=== PATIENT | female | born 1975 | race Caucasian/White ===

== ENCOUNTER 2016-07-21 13:31 | Day surgery (SDC) | payer BC ==
[~2016-07-21 13:31] MED LIST: BETAMET ACET/BETAMET NA PH 6 MG/1 ML - 5 ML IAC ONE; Iopamidol Inj 61% 50 ML VIAL INTRATHEC ONE; LIDOCAINE IV ONE; Ropivacaine 0.2% VIAL 2 MG/ML VIAL IAC ONE; SODIUM BICARB IV ONE
[2016-07-21 14:35] VITALS: RESP 20
[2016-07-21 14:43] VITALS: TEMP 98.1
--- NOTE | 2016-07-21 19:18 | GEN.OPNOTE ---
Transforaminal REENA Procedure: Transforaminal Epidural Steriod Injection Procedure Code - Neurosurgery: 97436 : Lumbar Transforaminal Epidural Level: Left L5-S1 Preoperative Diagnosis: L5-S1 disc herniation -: Consent: Rationale for procedure, nature of procedure, possible risks and benefits were discussed with the patient. Risks including allergic reaction to medications, known effects of steroid medications including transient elevation in blood sugar with aggravation of pre-existing diabetes and remote risk of aseptic necrosis of the hip. Pain at the injection site, inadvertent dural puncture with resultant in CSF leak and headache possibly requiring further treatment. Infection or bleeding with potential risk of neurologic injury with weakness, paralysis or were all reviewed with the patient who wished to proceed. Anesthesia, sedation: No intravenous access or sedation was used. Physiologic monitoring of pulse and oxygen saturation was utilized. Procedure: The patient was placed prone on the operating room table, prepped with Chloraprep and sterilely draped. The skin was anesthetized with 1% Buffered Xylocaine. Under fluoroscopic control a 22-gauge Touhy needle was advanced into the area of the Kambin's triangle at the [left L5-S1] level. Imaging confirmation of needle placement in the posterior, inferior and lateral quadrant of the foramen was obtained. Omnipaque was injected under real-time fluoroscopy demonstrating and epidurogram. Following this [5] ml of a mixture of Celestone (6mg/ml) and 1% ropivacaine was injected. AP and lateral images of the final needle placement was obtained. The needle was removed and the patient returned to the post procedure recovery room where they were monitored for any side effects. Pain assessment: Preprocedure pain [6]/10, post procedure pain [7]/10. Discharge instructions: Patient was given a pain log to be filled out and returned. A delayed response to the steroids of 2-5 days was discussed.
== END 2016-07-21 14:27 | disposition home or self-care (01) ==
LOC: SDSC 13:31
PROVIDERS: ATTEND Neurological Surgery
DX: M51.27 Other intervertebral disc displacement, lumbosacral region (principal)
CPT/HCPCS: 64483; 76000; J0702; J2795

== ENCOUNTER → 2016-07-27 | Outpatient (CLI) | payer BC ==
--- NOTE | 2016-07-27 16:08 | DI ---
MRI LUMBAR SPINE SCAN WITHOUT IV CONTRAST, 07/27/2016 1:58 PM: Clinical History: Lumbar radiculopathy. Previous Exam: 05/03/2016. Technique: Sagittal and axial T2 weighted; sagittal T1 weighted and T2 STIR; and axial PD. There are prominent Schmorl's nodes in the superior endplates of the T11-L1 vertebral bodies. The rem aining vertebral bodies are of normal height. There is severe disc space narrowing with desiccation c hange at L5-S1. The remaining lumbar disc spaces are of normal height and signal pattern. The cord te rminates at T12 and the conus medullaris is normal. There are bulging but not herniated discs without canal or neural foraminal stenosis from T10-11 through L1-2. L2-3 through L4-5 has minimally circumf erentially bulging but not herniated discs without canal or neural foraminal stenosis. L5-S1 has mai ges representing a right hemilaminectomy. There is hypointense signal along the left anterolateral as pect of the disc space and this has the same signal pattern as disc material although IV contrast was not administered. This presumed disc material has protruded posteriorly more prominently than on the previous exam and there is loss of epidural fat surrounding the left S1 nerve root medially. Therefo re, this patient may have left S1 nerve root symptoms. There is no canal or neural foraminal stenosis . Readin. Status post right hemilaminectomy. There is material along the left anterolateral aspect of this disc space that has the same signal pattern as disc material but no IV contrast was administered to a llow a definite exclusion of scar tissue formation. This presumed disc material is projected more pos teriorly than on the previous study and there has been loss of the epidural fat surrounding the media l margin of the left S1 nerve root. This patient may have left S1 nerve root symptoms. There is no ca nal or neural foraminal stenosis. 2. There are bulging but not herniated discs without canal or neural foraminal stenosis from T10-11 through L4-5.
== END ==
LOC: MRI 13:52
PROVIDERS: ATTEND Physician Assistant
DX: M54.16 Radiculopathy, lumbar region (principal); M47.815 Spondylosis without myelopathy or radiculopathy, thoracolumbar region
CPT/HCPCS: 72148

== ENCOUNTER → 2016-07-31 | Outpatient (CLI) | payer BC | LOC: LAB 10:40 | PROVIDERS: ATTEND Physician Assistant | DX: E03.9 Hypothyroidism, unspecified (principal) | CPT/HCPCS: 36415; 84443 ==

== ENCOUNTER → 2016-08-06 | Outpatient (CLI) | payer BC ==
--- NOTE | 2016-08-06 11:48 | DI ---
XR KNEE 3 VW,08/06/2016 4:02 PM: Clinical History: Meniscus tear Previous Exam: None at this facility. Findings: 3 views of the right knee are obtained, and demonstrate anatomic alignment without fractures. There i s no evidence of knee joint effusion. The surrounding soft tissues are unremarkable. Impression: Normal right knee.
== END ==
LOC: RAD 09:52
PROVIDERS: ATTEND Neurological Surgery
DX: S83.206A Unspecified tear of unspecified meniscus, current injury, right knee, initial encounter (principal); M25.561 Pain in right knee
CPT/HCPCS: 73562

== ENCOUNTER 2016-08-10 09:17 | Day surgery (SDC) | payer BC ==
[~2016-08-10 09:17] MED LIST changes: -BETAMET ACET/BETAMET NA PH 6 MG/1 ML - 5 ML IAC ONE; -Iopamidol Inj 61% 50 ML VIAL INTRATHEC ONE; -LIDOCAINE IV ONE; +LIDOCAINE W/ SODIUM BICARB 0.5 ML SYR ONE; +Lactated Ringers 1,000 ML PRIMARY IV ONE; -Ropivacaine 0.2% VIAL 2 MG/ML VIAL IAC ONE; -SODIUM BICARB IV ONE; +ceFAZolin Inj 2gm (Premix) 50 ML IV ONE
[2016-08-10 09:54] VITALS: RESP 20
[2016-08-10] MEDS ORDERED: BUPIVACAINE 0.5% W/ EPI - 10 ML VIAL ONE (10:38)
[2016-08-10] MEDS ORDERED: NORMAL SALINE 10 ML SYRINGE FLUSH IVP PRN ×2 (11:13→13:12)
[2016-08-10] MEDS ORDERED: ATROPINE SULFATE 0.4 MG/1 ML VIAL IVP PRN (11:13)
[2016-08-10] MEDS ORDERED: fentaNYL Inj 100 MCG/2 ML VIAL IVP PRN (11:13)
[2016-08-10] MEDS ORDERED: ONDANSETRON 4 MG/2 ML VIAL IVP PRN ×2 (11:13→13:12)
[2016-08-10] MEDS ORDERED: Ondansetron ODT Tab 8 MG TAB PO PRN (11:13)
[2016-08-10] MEDS ORDERED: Lactated Ringers 1,000 ML PRIMARY IV SCH ×2 (11:15→13:15)
[2016-08-10] MEDS ORDERED: MIDAZOLAM 5 MG/1 ML ONE (11:30)
[2016-08-10] MEDS ORDERED: fentaNYL Inj 100 MCG/2 ML VIAL ONE (11:30)
[2016-08-10] MEDS ORDERED: Sodium Chloride 0.9% vial 10 ML ONE (11:31)
[2016-08-10] MEDS ORDERED: KETAMINE 100 MG/1 ML - 5 ML ONE (11:31)
[2016-08-10] MEDS ORDERED: fentaNYL Inj 250 MCG/5 ML VIAL ONE (11:32)
[2016-08-10] MEDS ORDERED: BUPivacaine Inj 0.5% PF (5mg/ml) 10ml vial ONE (11:55)
[2016-08-10] MEDS ORDERED: LIDOCAINE MPF 2% - 5 ML (20 MG/1 ML) ONE (11:57)
[2016-08-10] MEDS ORDERED: oxyCODONE-ACETAMINOPHEN 5-325 TAB PO PRN (13:12)
[2016-08-10] MEDS ORDERED: MORPHINE SULFATE 2 MG/1 ML IVP PRN (13:12)
[2016-08-10] MEDS: HYDROmorphone 2 MG/1 ML IVP PRN ×2 (13:18→13:29)
[2016-08-10] MEDS ORDERED: MIDAZOLAM 5 MG/1 ML IVP ONE (13:19)
[2016-08-10] MEDS ORDERED: HYDROmorphone 2 MG/1 ML ONE (13:20)
[2016-08-10] MEDS ORDERED: Lactated Ringers 1,000 ML PRIMARY IV ONE (13:21)
[2016-08-10] MEDS ORDERED: oxyCODONE-ACETAMINOPHEN 5-325 TAB PO ONE (13:46)
[2016-08-10 14:57] VITALS: TEMP 97.3
== END 2016-08-10 14:35 | disposition home or self-care (01) ==
LOC: SDSC 09:17
PROVIDERS: ATTEND Orthopaedic Surgery
DX: G56.03 Carpal tunnel syndrome, bilateral upper limbs (principal)
CPT/HCPCS: 64721 ×2; A4216; J0690; J2704; J1170; J2001; J2250; J3010; J3490; J7120

== ENCOUNTER 2016-08-10 18:57 | Emergency (ER) | payer BC ==
[2016-08-10] MEDS ORDERED: Ondansetron ODT Tab 8 MG TAB PO ONE ×2 (19:05→19:10)
[2016-08-10] MEDS ORDERED: ONDANSETRON 4 MG/2 ML VIAL IVP ONE (19:23)
[2016-08-10] MEDS ORDERED: Sodium Chloride 0.9% 1,000 ML PRIMARY IV ONE ×2 (19:23→19:47)
[2016-08-10] MEDS ORDERED: ONDANSETRON 4 MG/2 ML VIAL ONE (19:26)
[2016-08-10] MEDS ORDERED: diphenhydrAMINE 50 MG/1 ML VIAL IVP ONE (19:47)
[2016-08-10] MEDS ORDERED: Magnesium Sulfate 2gm (Premix) 2 GM in Premix 1 BAG IV ONE (19:47)
[2016-08-10] MEDS ORDERED: KETOROLAC 30 MG/1 ML VIAL IVP ONE (19:47)
[2016-08-10] MEDS ORDERED: Prochlorperazine Edisylate Inj 10mg/2ml vial IVP ONE (19:47)
[2016-08-10] MEDS ORDERED: DEXAMETHASONE PF 10 MG/1 ML VIAL IVP ONE (19:47)
--- NOTE | 2016-08-10 19:47 | PDOC ---
Gen Adult / Medical Screen HPI - General Chief Complaint: General Medical Stated Complaint: Headache/Nausea/Vomitting Date Seen by Provider: 08/10/16 Time Seen by Provider: 19:47 Source: POSITIVE: Patient Exam Limitations: POSITIVE: No limitations Nurse's Notes Reviewed & Considered: Yes - Indicators Temperature Between 95 and 101 Degrees: Yes - Patient Home Medications Home Medications: Home Medications Losartan/Hydrochlorothiazide [Losartan-Hctz 100-12.5 mg Tab] 1 tab PO DAILY #30 tab 04/29/16 Metoprolol Succinate 1 tab PO BID #60 tab 05/25/16 Magnesium Oxide [Magnesium] 1 tab PO BID tab 06/29/16 Metformin HCl [Metformin HCl ER] 1 tab PO DAILY #70 tab 07/22/16 Cyclobenzaprine HCl 1 tab PO TID #40 tab 07/27/16 Tramadol HCl 1 tab PO Q6-8H #60 tab 07/27/16 Gabapentin 1 cap PO TID #60 cap 07/28/16 Dexlansoprazole [Dexilant] 60 mg PO DAILY #30 cap 08/06/16 Levothyroxine Sodium 1 tab PO DAILY #30 tab 08/06/16 Lidocaine 1 patch TRANSDERM DAILY #30 patch 08/06/16 oxyCODONE/APAP 5/325 Tab [Percocet 5/325 Tab] 1 - 2 tab PO Q4H PRN #30 tab - Patient Allergies Allergies/Adverse Reactions: Allergies Allergy/AdvReac Type Severity Reaction Status Date / Time Sulfa (Sulfonamide Allergy Unknown NOT Verified 08/10/16 19:04 Antibiotics) APPLICABLE codeine [Codeine] Allergy HEADACHE Verified 08/10/16 19:04 Tetanus Vaccines and Toxoid Allergy SWELLING Verified 08/10/16 19:04 [Tetanus] venom-honey bee Allergy SWELLING Verified 08/10/16 19:04 [bee venom (honey bee)] IV Contrast Allergy Intermediate Burning, Uncoded 08/10/16 19:04 Swelling, Hives Past Medical History - heen HEENT History: Denies History Cardiovascular History: Hypertension Additional Cardiovasular History: HX OF SVT Respiratory History: Other (please comment) Additional Respiratory History: chronic tobacco use, quit approx 1 week ago Gastrointestinal History: GERD, Peptic Ulcer Disease Genitourinary History: Kidney Stones Additional Genitourinary History: x9 WITH SONIC WAVES, LAZER AND SHUNTS TO REMOVE Endocrine History: Hypothyroidism Musculoskeletal History: Back Pain, Back Injury, Other (please comment) Prosthesis or Implant: No Additional Musculoskeletal History: lumbar spine surgery Neurological History: Denies History Blood Disorders: Denies History Psychiatric History: Depression, PTSD History of Sexually Transmitted Diseases: No Female Reproductive History: Denies History Obstetrical History: Denies History Cancer History: Denies History In Past Year Been Physically Harmed or Verbally Threatened: No History of MDRO: No History of Other Communicable Diseases: No Tobacco Use: Former Smoker Alcohol Use: Rarely Substance Use Type: None Previous Surgical History: Yes Type / Date of Surgery: LITHOTRIPSY/; HYSTERECTOMY. BACK FX/ SCIATICA SURGERY. SHUNTS FOR KIDNEY STONES Anesthesia Reactions: No Malignant Hyperthermia: No Significant Family History: No pertinent family hx ROS - Limitations ROS Limitations: No Limitations Constitution: REPORTS: Denies Symptoms Cardiovascular: REPORTS: Denies Cardiac Symptoms Respiratory: REPORTS: Denies Resp Symptoms Neurological: REPORTS: Headache Gastrointestinal: REPORTS: Nausea, Vomitting Endocrine: REPORTS: Denies Symptoms Musculoskeletal: REPORTS: Denies MS Symptoms Genitourinary: REPORTS: Denies Symptoms Eyes: REPORTS: Eye Pain ENT: REPORTS: Denies Symptoms Skin: REPORTS: Denies Skin Symptoms Lympathic: REPORTS: Denies Lympathic Symptoms Immunologic: POSITIVE: Denies Symptoms Psychiatric: POSITIVE: Anxiety Gen Adult/Medical Screen Exam - General Appearance General Appearance: POSITIVE: Alert, Cooperative, No Evidence of Trauma, Anxious , Severe Distress - HEENT HEENT: POSITIVE: Head Inspection Nml, Eyes Inspection Nml, Ears Inspection Nml, Nose Inspection Nml, Oral/Dental Inspect. Nml, Pharynx Inspect. Nml, PERRL, EOMI - Pupils Pupil Size: 5 mm: Bilateral - Neck Neck: POSITIVE: Normal Inspection - Respiratory Respiratory: POSITIVE: No Respiratory Distress, Breath Sounds Normal, Chest Non- Tender - Cardiovascular Cardiovascular: POSITIVE: Regular Rate & Rhythm, No Murmur, No Gallop, PMI Normal - Abdomen Abdomen: Soft: (All Quadrants), Normal Bowel Sounds: (All Quadrants), Denies Tenderness: (All Quadrants) - Neurological / Psychological Mental Status: POSITIVE: Tearful Orientation: POSITIVE: Oriented x 3 Reflexes: Patellar (R): 3+, Patellar (L): 3+, Radial (R): 3+, Radial (L): 3+ - Skin Skin: POSITIVE: Normal Color, Warm, Dry, No Rash - Extremities Extremity: Non-Tender: (All Extremities), Normal ROM: (All Extremities), Normal Inspection: (All Extremities) Procedures - Laceration/Wound Repair Did patient have a laceration repair: No Gen Adlt/Medical Scrn Progress - Results Reviewed by me Xrays/CTs/US Reviewed by me: Yes Discussed with Radiologist: Yes Lab Results Reviewed: Yes Lab Results:: Laboratory Results 08/10/16 Range/Units 19:13 WBC 10.83 H (4.8-10.8) 10^3/uL RBC 4.68 (4.20-5.40) 10^6/uL Hgb 14.7 (12.0-16.0) g/dL Hct 41.4 (37.0-47.0) % MCV 88.5 (81-99) FL MCH 31.4 H (27-31) PG MCHC 35.5 (33-37) g/dL RDW Std Deviation 38.0 L (39-50) fL RDW Coeff of Clara 12.0 (11.5-14.5) % Plt Count 185 (140-350) 10*3/uL MPV 10.4 (7.4-12.2) FL Immature Gran % (Auto) 0.3 (0-5) % Neut % (Auto) 76.9 (50-80) % Lymph % (Auto) 17.3 (10-50) % Billings % (Auto) 4.6 L (5-15) % Eos % (Auto) 0.6 (0-8) % Baso % (Auto) 0.3 (0-1) % Immature Gran # (Auto) 0.03 10*3/UL Neut # (Auto) 8.33 10*3/UL Lymph # (Auto) 1.87 10*3/uL Bill[place] # (Auto) 0.50 (0.3-0.8) 10*3/UL Eos # (Auto) 0.07 10*3/UL Baso # (Auto) 0.03 10*3/UL WBC Morphology Comment Normal morphology (NORM) Plt Morphology Comment Normal morphology (NORM) RBC Morph Comment Normal morphology (NORM) PT 10.6 (9.7-11.4) secs INR 1.03 (0.00-5.90) N/A Sodium 140 (135-145) meq/L Potassium 3.7 L (3.8-5.2) meq/L Chloride 106 (98-112) meq/L Carbon Dioxide 24 (23-33) meq/L Anion Gap 10 (5-20) BUN 19 (7-22) mg/dL Creatinine 0.7 (0.50-1.20) mg/dL Estimated GFR > 60 (>60 ml/min/1.73m(2)) BUN/Creatinine Ratio 27.14 H (6-20) Glucose 120 H (78-110) mg/dL Calculated Osmolality 292.0 (267-292) mOsm/kg Calcium 9.9 (8.7-10.7) mg/dL Total Bilirubin 0.6 (0.3-1.2) mg/dL AST 36 (8-39) IU/L ALT 51 (9-52) IU/L Alkaline Phosphatase 101 (38-126) IU/L Total Protein 7.4 (6.1-8.0) g/dL Albumin 4.5 (3.5-4.8) g/dL Globulin 2.9 (2.50-4.10) g/dL Albumin/Globulin Ratio 1.50 (1.3-2.0) mg/g - Patient's Progress Pain Medication Addressed: POSITIVE: Yes Re-Examine Time: 21:43 Status: POSITIVE: Improved MDM / ED Course: Patient was examined, an IV was started, blood drawn and sent to the lab for studies, radiographic studies obtained. Patient received a migraine headache cocktail which included dexamethasone, Toradol, Benadryl, Compazine, magnesium sulfate, normal saline, and Ativan. This resulted insignificant improvement of her pain and she is being discharged home in improved condition with an assessment of migraine headache status post surgery. - Consult Counseled: POSITIVE: Patient, Family, RE: Lab Results, RE: Radiology Results, RE : DX, RE: Need for F/U Patient Care Time - Estimated PCT Patient Care Time (In Minutes): 30 Vital Signs - VS Reviewed Vital Signs Reviewed: Yes Discharge Clinical Impression: Head ache, Vomiting Discharge Disposition: Discharged to Home Condition: Stable Patient Instructions Given at Discharge: Migraine Headache (ED)
[2016-08-10] MEDS ORDERED: LORazepam 2 MG/1 ML VIAL IVP ONE (19:56)
[2016-08-10 20:00] LABS: BASOPHILS # (AUTO) 0.03 10*3/UL; BASOPHILS % (AUTO) 0.3 % (0-1); EOSINOPHILS % (AUTO) 0.6 % (0-8); HEMATOCRIT 41.4 % (37.0-47.0); HEMOGLOBIN 14.7 g/dL (12.0-16.0); IMM GRAN % (AUTO) 0.3 % (0-5); IMM GRAN# (AUTO) 0.03 10*3/UL; LYMPHOCYTES # (AUTO) 1.87 10*3/uL; LYMPHOCYTES % (AUTO) 17.3 % (10-50); MEAN CORPUSCULAR HEMOGLOBIN 31.4 PG (27-31); MEAN CORPUSCULAR HGB CONC 35.5 g/dL (33-37); MEAN PLATELET VOLUME 10.4 FL (7.4-12.2); MONOCYTES % (AUTO) 4.6 % (5-15); NEUTROPHILS # (AUTO) 8.33 10*3/UL; NEUTROPHILS % (AUTO) 76.9 % (50-80); PLATELET MORPHOLOGY COMMENT NORMAL MORPHOLOGY (NORM); RED BLOOD COUNT 4.68 10^6/uL (4.20-5.40); WHITE BLOOD COUNT 10.83 10^3/uL (4.8-10.8)
[2016-08-10 20:06] LABS: PROTHROMBIN TIME 10.6 secs (9.7-11.4)
[2016-08-10 20:07] LABS: ASPARTATE AMINO TRANSFERASE 36 IU/L (8-39); BILIRUBIN,TOTAL 0.6 mg/dL (0.3-1.2); BLOOD UREA NITROGEN 19 mg/dL (7-22); BUN/CREATININE RATIO 27.14 (6-20); CALCIUM 9.9 mg/dL (8.7-10.7); CHLORIDE 106 meq/L (98-112); CREATININE 0.7 mg/dL (0.50-1.20); EST GLOMERULAR FILTRATION > 60 (>60 ml/min/1.73m(2)); GLUCOSE 120 mg/dL (78-110); POTASSIUM 3.7 meq/L (3.8-5.2); SODIUM 140 meq/L (135-145); TOTAL PROTEIN 7.4 g/dL (6.1-8.0)
--- NOTE | 2016-08-10 21:04 | DI ---
CT HEAD W/O CONTRAST,08/10/2016 7:54 PM: Clinical History: Worst headache of life. Previous Exam: February 17, 2016 Findings: Multiple helically acquired CT images are obtained through the brain without contrast, and demonstrat e normal, symmetric ventricles and other CSF containing spaces. There is no mass, hemorrhage or midli ne shift. The surrounding soft tissue and osseous structures are unremarkable. The intraorbital struc tures are also unremarkable. Impression: Normal CT head without contrast
[2016-08-10] MEDS ORDERED: Ondansetron ODT Tab 8 MG TAB PO SCH (22:00)
[2016-08-10 22:06] VITALS: RESP 18
[2016-08-11] MEDS ORDERED: Sodium Chloride 0.9% 1,000 ML ONE (06:09)
== END 2016-08-10 21:53 | disposition home or self-care (01) ==
LOC: ER 18:57
DX: R51 Headache (principal); R11.2 Nausea with vomiting, unspecified
CPT/HCPCS: 70450; 80053; 85025; 85610; 96365; 96375; 99283 ×2; J1200; J1885; Q0162; J0780; J1100; J2060; J2405; J3475; J7030

== ENCOUNTER → 2016-08-27 | Outpatient (CLI) | payer BC ==
--- NOTE | 2016-08-27 13:57 | DI ---
MRI RIGHT KNEE SCAN, 08/27/2016 12:41 PM: Clinical History: Meniscus tear. Previous Exam: None at this facility. Technique: Axial, coronal, and sagittal PD and fat saturated PD; axial T1 weighted. There is no soft tissue edema. There is no significant joint effusion but there is a small 10 x 12 x 15 mm multiloculated medial popliteal cyst. There is slight increased signal intensity in the tibial spines at the attachment of the anterior cruciate ligament. The medial and lateral clot or ligaments and the posterior cruciate ligament are normal. Both bundles of the anterior cruciate ligament show i ncreased signal intensity indicating a partial tear or sprain of that ligament. The medial and latera l menisci, the quadriceps and patellar and popliteus tendons, in the tendons of the medial and latera l heads of the gastrocnemius muscle are normal. The articular surfaces of all 3 compartments are also normal. Readin. There is a partial tear or sprain of the ACL with associated mild edema in the tibial spines at t he attachment of the ACL to the tibia. A small medial popliteal cyst is present. 2. The MCL, LCL, PCL, medial and lateral menisci, the quadriceps and patellar and popliteus tendons, and the tendons of the medial and lateral heads of the gastrocnemius muscle are normal. The articula r surfaces of all 3 compartments are intact.
== END ==
LOC: MRI 12:37
PROVIDERS: ATTEND Neurological Surgery
DX: S83.209A Unspecified tear of unspecified meniscus, current injury, unspecified knee, initial encounter (principal); S83.511A Sprain of anterior cruciate ligament of right knee, initial encounter; M71.21 Synovial cyst of popliteal space [Baker], right knee
CPT/HCPCS: 73721

== ENCOUNTER → 2016-09-18 | Outpatient (CLI) | payer BC ==
[2016-09-18 08:17] LABS: BLOOD UREA NITROGEN 16 mg/dL (7-22); CALCIUM 9.5 mg/dL (8.7-10.7); EST GLOMERULAR FILTRATION > 60 (>60 ml/min/1.73m(2)); SERUM ALBUMIN 4.2 g/dL (3.5-4.8)
== END ==
LOC: LAB 07:27
PROVIDERS: ATTEND Student in an Organized Health Care Education/Training Program
DX: E03.9 Hypothyroidism, unspecified (principal); R94.5 Abnormal results of liver function studies; E83.42 Hypomagnesemia; F17.210 Nicotine dependence, cigarettes, uncomplicated
CPT/HCPCS: 36415; 80053; 83735; 84443

== ENCOUNTER → 2016-10-26 | Outpatient (CLI) | payer BC | LOC: LAB 13:11 | PROVIDERS: ATTEND Neurological Surgery | DX: M81.8 Other osteoporosis without current pathological fracture (principal); E03.9 Hypothyroidism, unspecified | CPT/HCPCS: 36415; 82306; 83970 ==

== ENCOUNTER 2016-11-04 09:22 | Day surgery (SDC) | payer BC ==
[2016-11-04 10:17] VITALS: RESP 16
--- NOTE | 2016-11-04 11:11 | GEN.OPNOTE ---
Interlaminar REENA Procedure: Interlaminar Epidural Steriod Injection Procedure Code - Neurosurgery: 78809 : Cervical Epidural Injection (Single) -: Consent: Rationale for procedure, nature of procedure, possible risks and benefits were discussed with the patient. Risks including allergic reaction to medications, known effects of steroid medications including transient elevation in blood sugar with aggravation of pre-existing diabetes and remote risk of aseptic necrosis of the hip. Pain at the injection site, inadvertent dural puncture with resultant in CSF leak and headache possibly requiring further treatment. Infection or bleeding with potential risk of neurologic injury with weakness, paralysis or were all reviewed with the patient who wished to proceed. Anesthesia, sedation: No intravenous access or sedation was used. Physiologic monitoring of pulse and oxygen saturation was utilized. Procedure: The patient was placed prone on the operating room table, prepped with Chloroprep and sterilely draped. The skin was anesthetized with 1% Buffered Xylocaine. Under fluoroscopic control a 22-gauge Touhy needle was advanced into the epidural space at the T9-10 level. Using loss-of- resistance technique the epidural space was identified. Omnipaque was injected under real- time fluoroscopy demonstrating an epidurogram. Following this 3 ml of a mixture of triamcinolone 40mg, dexamethasone 10 and 1ccof .25% bupivicaine was injected epidurally. AP and lateral images of the final needle placement were obtained. The needle was removed and the patient returned to the post procedure recovery room where they were monitored for any side effects. Pain assessment: Preprocedure pain []/10, post procedure pain []/10. Discharge instructions: Patient was given a pain log to be filled out and returned. A delayed response to the steroids of 2-5 days was discussed. Dx Thoracic Degenerative Disc Disease
[2016-11-04 11:21] VITALS: TEMP 96.8
[2016-11-04] MEDS ORDERED: BUPivacaine Inj 0.25% PF - 10ml vial IV ONE (12:35)
[2016-11-04] MEDS ORDERED: TRIAMCINOLONE ACETONIDE 40 MG/1 ML IM ONE (12:35)
[2016-11-04] MEDS ORDERED: DEXAMETHASONE SOD PHOSPHATE 4 MG/1 ML VIAL IV ONE (12:35)
== END 2016-11-04 11:15 | disposition home or self-care (01) ==
LOC: SDSC 09:22
PROVIDERS: ATTEND Pain Medicine Interventional Pain Medicine
DX: M51.34 Other intervertebral disc degeneration, thoracic region (principal); M54.16 Radiculopathy, lumbar region; M51.37 Other intervertebral disc degeneration, lumbosacral region
CPT/HCPCS: 76000; J1100

== ENCOUNTER 2016-11-13 08:55 | Emergency (ER) | payer BC ==
[2016-11-13] MEDS ORDERED: KETOROLAC 60 MG/2 ML VIAL IM ONE (09:06)
[2016-11-13] MEDS ORDERED: oxyCODONE-ACETAMINOPHEN 5-325 TAB PO ONE (09:06)
--- NOTE | 2016-11-13 09:11 | PDOC ---
Lower Extremity Problem HPI - General Chief Complaint: Lower Extremity Problem/Injury Stated Complaint: pain behind right knee Date Seen by Provider: 11/13/16 Time Seen by Provider: 09:05 Source: POSITIVE: Patient Exam Limitations: POSITIVE: No limitations Nurse's Notes Reviewed & Considered: Yes - History of Present Illness Initial Comments: The patient is a 41-year-old female who presents to the emergency department with right sided leg pain. She states for the past couple of days she has a pain that initially originated behind her right knee. She now has pain radiating down into the right calf as well as up into her thigh. She thinks that she may have had some mild swelling to the leg as well. She denies any recent injury. She did have an MRI on her knee several months ago showing a small meniscal tear. She denies any fevers or chills, chest pain or shortness of breath or any other associated complaint. She currently does not take any form of estrogen or hormone therapy. She quit smoking several months ago. She does not have any known history of blood clot. She has increased pain with movement at the knee as well as dorsiflexion of her foot causing pain in her calf and behind her knee. She has been taking Aleve and took some Ultram this morning without any pain relief. - Patient Home Medications Home Medications: Home Medications Metoprolol Succinate 1 tab PO BID #60 tab 05/25/16 Magnesium Oxide [Magnesium] 1 tab PO BID tab 06/29/16 Dexlansoprazole [Dexilant] 60 mg PO DAILY #30 cap 08/06/16 Metformin HCl [Metformin Hcl Er] 2 tab PO BID #120 tab 08/24/16 Levothyroxine Sodium 1 tab PO DAILY #30 tab 09/20/16 Losartan/Hydrochlorothiazide [Losartan-Hctz 100-12.5 Mg Tab] 1 tab PO DAILY #30 tab 09/20/16 Varenicline Tartrate [Chantix] 1 tab PO BID #1 packet 09/22/16 Cyclobenzaprine HCl 1 tab PO TID #30 tab 10/05/16 Tramadol HCl 1 tab PO Q6-8H #60 tab 10/20/16 Oxycodone HCl/Acetaminophen [Percocet 5-325 Mg Tablet] 1 tab PO Q6H #40 tab 09/10 - Patient Allergies Allergies/Adverse Reactions: Allergies Allergy/AdvReac Type Severity Reaction Status Date / Time Sulfa (Sulfonamide Allergy Unknown NOT Verified 11/13/16 09:02 Antibiotics) APPLICABLE codeine [Codeine] Allergy HEADACHE Verified 11/13/16 09:02 Tetanus Vaccines and Toxoid Allergy SWELLING Verified 11/13/16 09:02 [Tetanus] venom-honey bee Allergy SWELLING Verified 11/13/16 09:02 [bee venom (honey bee)] IV Contrast Allergy Intermediate Burning, Uncoded 11/13/16 09:02 Swelling, Hives Past Medical History - heen HEENT History: Denies History Cardiovascular History: Hypertension Additional Cardiovasular History: HX OF SVT Respiratory History: Other (please comment) Additional Respiratory History: chronic tobacco use, quit approx 1 week ago Gastrointestinal History: GERD, Peptic Ulcer Disease Genitourinary History: Kidney Stones Additional Genitourinary History: x9 WITH SONIC WAVES, LAZER AND SHUNTS TO REMOVE Endocrine History: Hypothyroidism Musculoskeletal History: Back Pain, Back Injury, Other (please comment) Prosthesis or Implant: No Additional Musculoskeletal History: lumbar spine surgery Neurological History: Denies History Blood Disorders: Denies History Psychiatric History: Depression, PTSD History of Sexually Transmitted Diseases: No Cancer History: Denies History History of MDRO: No History of Other Communicable Diseases: No Alcohol Use: Rarely Substance Use Type: None Previous Surgical History: Yes Type / Date of Surgery: LITHOTRIPSY/; HYSTERECTOMY. BACK FX/ SCIATICA SURGERY. SHUNTS FOR KIDNEY STONES Anesthesia Reactions: No Malignant Hyperthermia: No Significant Family History: No pertinent family hx Past Medical History Reviewed: Reviewed - No Changes ROS - Limitations ROS Limitations: No Limitations Constitution: DENIES: Chills, Fever Cardiovascular: REPORTS: Denies Cardiac Symptoms Respiratory: REPORTS: Denies Resp Symptoms Neurological: REPORTS: Denies Neuro Symptoms Gastrointestinal: REPORTS: Denies GI Symptoms Endocrine: REPORTS: Denies Symptoms Eyes: REPORTS: Denies Symptoms ENT: REPORTS: Denies Symptoms Skin: DENIES: Rash Lower Ext Problem Exam - General Appearance General Appearance: POSITIVE: Alert, Cooperative, No Acute Distress - Extremities Lower Extremity: POSITIVE: Other (Examination of the right lower extremity reveals no obvious visible swelling, erythema or open wounds. She does have tenderness to the calf and to the popliteal region, good dorsalis pedis pulse in the right foot, positive Homans sign) Vascular: POSITIVE: No Vascular Compromise - Neuro / Psych Neuro/Psych: POSITIVE: Sensation Normal, Motor Normal - Skin Skin: POSITIVE: Normal Color, No Rash - HEENT HEENT: POSITIVE: Head Inspection Nml - Respiratory / CVS Respiratory / CVS: POSITIVE: No Respiratory Distress, Breath Sounds Normal, Regular Rate/Rhythm, Heart Sounds Normal Peripheral Pulses: Dorsalis-pedis (R): 2+ Images - Uploaded Photos Uploaded Photos: Lower Ext Problem Progress - Results Reviewed by me Xrays/CTs/US Reviewed by me: Yes Radiology Findings: Ultrasound of the right leg was negative for DVT, there was no visible Hayes's cyst or inflammatory changes noted on ultrasound - Patient's Progress MDM / ED Course: Ultrasound of the right lower extremity was ordered and the patient was given Toradol 60 mg IM and Percocet 5/325, 2 by mouth for pain. Her pain was improving. Ultrasound was negative for DVT and did not show any obvious Hayes' s cyst. Review of her MRI from 2 months ago did reveal a small popliteal cyst. Clinically her symptoms are consistent with a ruptured Hayes's cyst. She was given crutches to assist with ambulation. She is advised to use Aleve 2 tablets twice a day regularly as an anti-inflammatory. She already has Ultram or Percocet that she can take as needed for pain. She is advised to return to the emergency room if she develops increased pain or swelling, fever, any worsening or change in symptoms. She is advised follow-up with her orthopedic surgeon Dr. Padilla. - Consult Counseled: POSITIVE: Patient, Family, RE: Radiology Results, RE: DX, RE: Need for F/U Patient Care Time - Estimated PCT Patient Care Time (In Minutes): 20 Vital Signs - VS Reviewed Vital Signs Reviewed: Yes Discharge Clinical Impression: Hayes's cyst of knee Discharge Disposition: Discharged to Home Condition: Stable Patient Instructions Given at Discharge: Bakers Cyst (ED) Additional Instructions: The ultrasound of your right leg did not show any evidence of blood clot. They did not see any sign of Hayes's cyst on the ultrasound however on your MRI from a couple months ago there was some evidence of a small Hayes's cyst at that time. Your clinical symptoms are consistent with a Hayes cyst that may have ruptured. Recommend continuation of Aleve 2 tablets twice a day with food as an anti-inflammatory. Continue tramadol or Percocet as needed for pain. You have been given crutches to assist with ambulation. Return to the emergency room if increased pain, increased swelling, fever or chills, any worsening or change in symptoms. Recommend follow-up with Dr. Padilla, call on Tuesday to schedule an appointment. Follow Up With: RODOLFO MONTEZ [Primary Care Provider] -
[2016-11-13 09:26] VITALS: RESP 16; TEMP 97.1
--- NOTE | 2016-11-13 12:20 | DI ---
HISTORY: Right leg and calf pain. TECHNIQUE: Duplex Doppler examination of the deep veins of the right lower extremity was performed w ith compression maneuvers. FINDINGS: Doppler demonstrates normal respiratory variation. There is an appropriate response to co mpression maneuvers. There is no evidence of intraluminal thrombus. IMPRESSION: 1. There is no evidence of deep venous thrombosis in the examined right lower extremity veins.
== END 2016-11-13 10:19 | disposition home or self-care (01) ==
LOC: ER 08:55
DX: M71.21 Synovial cyst of popliteal space [Baker], right knee (principal); M79.604 Pain in right leg; M25.561 Pain in right knee
CPT/HCPCS: 93971; 96372; 99283 ×2; J1885

== ENCOUNTER 2016-11-14 08:44 | Emergency (ER) | payer BC ==
[2016-11-14] MEDS ORDERED: KETOROLAC 15 MG/1 ML VIAL IVP ONE (09:07)
[2016-11-14] MEDS ORDERED: ONDANSETRON 4 MG/2 ML VIAL IVP ONE (09:07)
[2016-11-14] MEDS ORDERED: Sodium Chloride 0.9% 1,000 ML PRIMARY IV ONE (09:07)
[2016-11-14 09:09] VITALS: RESP 22; TEMP 95.5
--- NOTE | 2016-11-14 09:15 | PDOC ---
Lower Extremity Injury HPI - General Chief Complaint: Lower Extremity Problem/Injury Stated Complaint: R posterior knee pain Date Seen by Provider: 11/14/16 Time Seen by Provider: 09:09 Source: POSITIVE: Patient, RN/MD Exam Limitations: POSITIVE: No limitations Nurse's Notes Reviewed & Considered: Yes - History of Present Illness Initial Comments: Patient comes in today with a chief complaint of right knee pain. Patient was seen in the emergency room yesterday for the same. I discussed this patient with her emergency room care provider Dr. Zamora. Ultrasound done yesterday showed no DVT present. Patient state that the pain has increased in her posterior right knee, now with fevers, chills, sweats, and decreased range of motion with decreased ability to ambulate. Her symptoms began approximately 4 days ago escalated. She had Percocet tablets at home, she did not receive a prescription for further pain medication yesterday. Presently she is out of pain medication. She denies any headache, sore throat, chest pain, nausea vomiting or diarrhea, hematuria or dysuria. Have you received a tetanus shot in the past 10 years?: Yes Body Location Affected: REPORTS: Lower Extremity (R) Timing: REPORTS: Constant, Getting Worse Duration: <1 week Severity: Severe Quality: REPORTS: "Pain", Stabbing, Throbbing Location at Time of Onset: REPORTS: Home Context of Injury: REPORTS: Other (No known injury) Location of Injury: REPORTS: Knee (R) (Popliteal region of her knee) Modifying Factors: improves with: Movement, Nothing Relieves Associated Symptoms: REPORTS: Unable to Bear Weight Any Prior Injuries Related to Current Complaint?: No - Patient Home Medications Home Medications: Home Medications Metoprolol Succinate 1 tab PO BID #60 tab 05/25/16 Magnesium Oxide [Magnesium] 1 tab PO BID tab 06/29/16 Dexlansoprazole [Dexilant] 60 mg PO DAILY #30 cap 08/06/16 Metformin HCl [Metformin Hcl Er] 2 tab PO BID #120 tab 08/24/16 Levothyroxine Sodium 1 tab PO DAILY #30 tab 09/20/16 Losartan/Hydrochlorothiazide [Losartan-Hctz 100-12.5 Mg Tab] 1 tab PO DAILY #30 tab 09/20/16 Varenicline Tartrate [Chantix] 1 tab PO BID #1 packet 09/22/16 Cyclobenzaprine HCl 1 tab PO TID #30 tab 10/05/16 Tramadol HCl 1 tab PO Q6-8H #60 tab 10/20/16 Oxycodone HCl/Acetaminophen [Percocet 5-325 Mg Tablet] 1 tab PO Q6H #40 tab 09/10 - Patient Allergies Allergies/Adverse Reactions: Allergies Allergy/AdvReac Type Severity Reaction Status Date / Time Sulfa (Sulfonamide Allergy Unknown NOT Verified 11/14/16 08:49 Antibiotics) APPLICABLE codeine [Codeine] Allergy HEADACHE Verified 11/14/16 08:49 Tetanus Vaccines and Toxoid Allergy SWELLING Verified 11/14/16 08:49 [Tetanus] venom-honey bee Allergy SWELLING Verified 11/14/16 08:49 [bee venom (honey bee)] IV Contrast Allergy Intermediate Burning, Uncoded 11/14/16 08:49 Swelling, Hives Past Medical History - heen HEENT History: Denies History Cardiovascular History: Hypertension Additional Cardiovasular History: HX OF SVT Respiratory History: Other (please comment) Additional Respiratory History: chronic tobacco use, quit approx 5 months ago Gastrointestinal History: GERD, Peptic Ulcer Disease Genitourinary History: Kidney Stones Additional Genitourinary History: x9 WITH SONIC WAVES, LAZER AND SHUNTS TO REMOVE Endocrine History: Hypothyroidism Musculoskeletal History: Back Pain, Back Injury, Other (please comment) Prosthesis or Implant: No Additional Musculoskeletal History: lumbar spine surgery Neurological History: Denies History Blood Disorders: Denies History Psychiatric History: Depression, PTSD History of Sexually Transmitted Diseases: No Female Reproductive History: Hysterectomy Cancer History: Denies History In Past Year Been Physically Harmed or Verbally Threatened: No History of MDRO: No History of Other Communicable Diseases: No Tobacco Use: Former Smoker Alcohol Use: Rarely Substance Use Type: None Previous Surgical History: Yes Type / Date of Surgery: LITHOTRIPSY/; HYSTERECTOMY. BACK FX/ SCIATICA SURGERY. SHUNTS FOR KIDNEY STONES Anesthesia Reactions: No Malignant Hyperthermia: No Significant Family History: No pertinent family hx ROS - Limitations ROS Limitations: No Limitations Constitution: REPORTS: Chills, Fever, Diaphoresis Cardiovascular: REPORTS: Denies Cardiac Symptoms Respiratory: REPORTS: Denies Resp Symptoms Neurological: REPORTS: Denies Neuro Symptoms Gastrointestinal: REPORTS: Denies GI Symptoms Endocrine: REPORTS: Denies Symptoms Musculoskeletal: REPORTS: Joint Pain (Right knee), Lower Extremity Swelling ( Right lower extremity) Genitourinary: REPORTS: Denies Symptoms Eyes: REPORTS: Denies Symptoms ENT: REPORTS: Denies Symptoms Skin: REPORTS: Denies Skin Symptoms Lympathic: REPORTS: Denies Lympathic Symptoms Immunologic: POSITIVE: Denies Symptoms Psychiatric: POSITIVE: Denies Psych Symptoms Lower Ext Complaint Exam - General Appearance General Appearance: POSITIVE: Alert, Cooperative, No Evidence of Trauma, Severe Distress - Extremities Lower Extremity: POSITIVE: Normal Color, Normal Temperature, Skin Intact, Soft Tissue Tenderness (Popliteal region of her right knee with extension both proximally and distally.), Swelling (Mild fullness palpated in her popliteal space.), Limited ROM (Secondary to pain) Gait: POSITIVE: Unable to Bear Weight Neurovascular/Tendon: POSITIVE: Sensation Normal, Motor Normal, No Vascular Compromise Skin: POSITIVE: Warm, Dry - HEENT HEENT: POSITIVE: Head Inspection Nml, Eyes Inspection Nml, Ears Inspection Nml, Nose Inspection Nml, PERRL, EOMI - Neck / Back Neck/Back: POSITIVE: Normal Inspection, Non-Tender - Respiratory / CVS Respiratory / CVS: POSITIVE: Chest Non Tender, No Ecchymosis, Breath Sounds Normal, No Respiratory Distress, Heart Sounds Normal, Regular Rate/Rhythm Peripheral Pulses: Popliteal (R): 2+, Popliteal (L): 2+, Dorsalis-pedis (R): 2+ , Dorsalis-pedis (L): 2+ - Abdomen Abdomen: Soft: (All Quadrants), Normal Bowel Sounds: (All Quadrants), Denies Tenderness: (All Quadrants) Lower Ext Complaint Progress - Results Reviewed by me Xrays/CTs/US Reviewed by me: Yes Discussed with Radiologist: Yes Lab Results Reviewed: Yes Lab Results:: Laboratory Results 11/14/16 11/14/16 Range/Units 09:10 09:20 WBC 9.15 (4.8-10.8) 10^3/uL RBC 4.32 (4.20-5.40) 10^6/uL Hgb 13.6 (12.0-16.0) g/dL Hct 37.9 (37.0-47.0) % MCV 87.7 (81-99) FL MCH 31.5 H (27-31) PG MCHC 35.9 (33-37) g/dL RDW Std Deviation 38.5 L (39-50) fL RDW Coeff of Clara 12.6 (11.5-14.5) % Plt Count 195 (140-350) 10*3/uL MPV 10.2 (7.4-12.2) FL ESR 19 (0-20) MM/HR VBG pH 7.55 H (7.32-7.42) VBG pCO2 23 L (45-55) mmHg VBG HCO3 20 L (22-26) mmol/L VBG Base Excess -3 L (-2-2) MMOL/L Sodium 138 (135-145) meq/L Potassium 4.0 (3.8-5.2) meq/L Chloride 106 (98-112) meq/L Carbon Dioxide 21 L (23-33) meq/L Anion Gap 11 (5-20) BUN 18 (7-22) mg/dL Creatinine 0.7 (0.50-1.20) mg/dL Estimated GFR > 60 (>60 ml/min/1.73m(2)) BUN/Creatinine Ratio 25.71 H (6-20) Glucose 125 H (78-110) mg/dL Calculated Osmolality 288.0 (267-292) mOsm/kg Lactic Acid 0.9 (0.70-2.10) MMOL/L Uric Acid 5.9 (2.5-7.0) mg/dl Calcium 9.5 (8.7-10.7) mg/dL Total Bilirubin 0.8 (0.3-1.2) mg/dL AST 21 (8-39) IU/L ALT 42 (9-52) IU/L Alkaline Phosphatase 95 (38-126) IU/L C-Reactive Protein 1.7 H (0.0-0.9) mg/dL Total Protein 7.1 (6.1-8.0) g/dL Albumin 4.0 (3.5-4.8) g/dL Globulin 3.1 (2.50-4.10) g/dL Albumin/Globulin Ratio 1.20 L (1.3-2.0) mg/g - Patient's Progress Pain Medication Addressed: POSITIVE: Yes Re-Examine Time:: 10:45 Status: POSITIVE: Improved MDM / ED Course: Patient was evaluated, an IV started, blood drawn and sent to the lab for studies, radiographic examinations obtained. Patient received IV Toradol, normal saline, and Zofran. Findings: CBC shows white count normal. Comprehensive metabolic panel is unremarkable. C-reactive protein is slightly elevated. CT scan of her knee shows no acute abnormalities, no abscesses. Blood cultures are pending. Assessment: Knee pain. Likely related to previously seen Hayes's cyst on MRI. Plan: Patient is being discharged home with a prescription for tramadol, instructions to use her crutches, and he will her follow-up appointment with Dr. Padilla per her instructions from yesterday. - Consult Counseled: POSITIVE: Patient, RE: Lab Results, RE: Radiology Results, RE: DX, RE : Need for F/U Patient Care Time - Estimated PCT Patient Care Time (In Minutes): 30 Vital Signs - Recent Vital Signs Vital Signs: Vital Signs (Last 8 hours) Temp Pulse Resp BP Pulse Ox 11/14/16 08:51 95.5 F L 84 22 177/124 100 - VS Reviewed Vital Signs Reviewed: Yes Discharge Clinical Impression: Knee pain Discharge Disposition: Discharged to Home Condition: Stable Patient Instructions Given at Discharge: Knee Pain (ED)
[2016-11-14 09:27] LABS: VENOUS PH 7.55 (7.32-7.42)
[2016-11-14 09:34] LABS: BLOOD UREA NITROGEN 18 mg/dL (7-22); BUN/CREATININE RATIO 25.71 (6-20); C-REACTIVE PROTEIN 1.7 mg/dL (0.0-0.9); CALCIUM 9.5 mg/dL (8.7-10.7); EST GLOMERULAR FILTRATION > 60 (>60 ml/min/1.73m(2)); HEMATOCRIT 37.9 % (37.0-47.0); HEMOGLOBIN 13.6 g/dL (12.0-16.0); MEAN CORPUSCULAR HEMOGLOBIN 31.5 PG (27-31); MEAN CORPUSCULAR HGB CONC 35.9 g/dL (33-37); MEAN CORPUSCULAR VOLUME 87.7 FL (81-99); RED BLOOD COUNT 4.32 10^6/uL (4.20-5.40); URIC ACID 5.9 mg/dl (2.5-7.0)
[2016-11-14 09:35] LABS: MEAN PLATELET VOLUME 10.2 FL (7.4-12.2)
--- NOTE | 2016-11-14 10:14 | DI ---
HISTORY: Right knee pain. Fever. TECHNIQUE: Unenhanced images of the right knee were obtained and submitted for interpretation. FINDINGS: There is no acute fracture or dislocation. Bony alignment and joint spaces are preserved. There is no soft tissue abscess. IMPRESSION: 1. No acute osseous abnormalities. Consider MRI.
== END 2016-11-14 10:56 | disposition home or self-care (01) ==
LOC: ER 08:44
DX: M25.561 Pain in right knee (principal); R50.9 Fever, unspecified
CPT/HCPCS: 36415; 73700; 80053; 82803; 83605; 84550; 85027; 85652; 86140; 96361; 96374; 96375; 99283; J1885; J2405; J7030

== ENCOUNTER 2016-12-15 15:28 | Emergency (ER) | payer OTHER ==
[2016-12-15 16:25] VITALS: RESP 17; TEMP 97.2
[2016-12-15 16:39] LABS: BASOPHILS # (AUTO) 0.06 10*3/UL; BASOPHILS % (AUTO) 0.7 % (0-1); EOSINOPHILS # (AUTO) 0.11 10*3/UL; EOSINOPHILS % (AUTO) 1.4 % (0-8); HEMATOCRIT 42.2 % (37.0-47.0); HEMOGLOBIN 14.6 g/dL (12.0-16.0); LYMPHOCYTES # (AUTO) 2.41 10*3/uL; MEAN CORPUSCULAR HEMOGLOBIN 31.5 PG (27-31); MEAN CORPUSCULAR HGB CONC 34.6 g/dL (33-37); MEAN CORPUSCULAR VOLUME 90.9 FL (81-99); MEAN PLATELET VOLUME 9.4 FL (7.4-12.2); MONOCYTES % (AUTO) 6.2 % (5-15); NEUTROPHILS # (AUTO) 4.93 10*3/UL; NEUTROPHILS % (AUTO) 61.5 % (50-80); RED BLOOD COUNT 4.64 10^6/uL (4.20-5.40)
[2016-12-15 17:03] LABS: PLATELET MORPHOLOGY COMMENT NORMAL MORPHOLOGY (NORM); RBC MORPHOLOGY COMMENT NORMAL MORPHOLOGY (NORM); WBC MORPHOLOGY COMMENT NORMAL MORPHOLOGY (NORM)
[2016-12-15 17:06] LABS: BLOOD UREA NITROGEN 29 mg/dL (7-22); C-REACTIVE PROTEIN 0.7 mg/dL (0.0-0.9); CALCIUM 9.8 mg/dL (8.7-10.7); EST GLOMERULAR FILTRATION > 60 (>60 ml/min/1.73m(2)); SERUM ALBUMIN 4.7 g/dL (3.5-4.8)
[2016-12-15 17:25] LABS: ERYTHROCYTE SEDIMENTATION RATE 23 MM/HR (0-20)
--- NOTE | 2016-12-15 17:51 | PDOC ---
General Adult HPI - General Chief Complaint: Lower Extremity Problem/Injury Stated Complaint: emiliano leg weakness Date Seen by Provider: 12/15/16 Time Seen by Provider: 15:35 - History of Present Illness Initial Comment: Patient is a very nice 41-year-old woman who is been struggling with some upper and lower extremity weakness and strange neurologic sort of symptoms. She's had consultation from neurosurgery and from neurology she's had EMGs substantial lab workup including looking for autoimmune disorders and typical workup. She states that she had a epidural injection about 3 weeks ago which did not help much with some lower back symptoms. She states that she is now having pretty significant bilateral anterior thigh discomfort and that when she tries to bend her legs her legs get very shaky and feel like they are giving out on her. She has no loss of bowel function or bladder incontinence she has no saddle anesthesia. She has no fever or chills. She has her diffuse low back pain nothing new or different than what is chronic for her there. Have you received a tetanus shot in the past 10 years?: No - Patient Home Medications Home Medications: Home Medications Metoprolol Succinate 1 tab PO BID #60 tab 05/25/16 Magnesium Oxide [Magnesium] 1 tab PO BID tab 06/29/16 Metformin HCl [Metformin Hcl Er] 2 tab PO BID #120 tab 08/24/16 Levothyroxine Sodium 1 tab PO DAILY #30 tab 09/20/16 Losartan/Hydrochlorothiazide [Losartan-Hctz 100-12.5 Mg Tab] 1 tab PO DAILY #30 tab 09/20/16 Varenicline Tartrate [Chantix] 1 tab PO BID #1 packet 09/22/16 Naproxen 1 tab PO BID #60 tab 11/17/16 Oxycodone HCl/Acetaminophen [Percocet 7.5-325 Mg Tablet] 1 tab PO Q6H #60 tab Cyclobenzaprine HCl 1 tab PO TID #30 tab 12/01/16 Dexlansoprazole [Dexilant] 60 mg PO DAILY #30 cap 12/14/16 Ascorbic Acid [Vitamin C] 500 mg PO DAILY 12/15/16 Cholecalciferol (Vitamin D3) [Vitamin D3] 5,000 unit PO DAILY 12/15/16 - Patient Allergies Allergies/Adverse Reactions: Allergies Allergy/AdvReac Type Severity Reaction Status Date / Time Sulfa (Sulfonamide Allergy Unknown NOT Verified 12/15/16 15:45 Antibiotics) APPLICABLE codeine [Codeine] Allergy HEADACHE Verified 12/15/16 15:45 Tetanus Vaccines and Toxoid Allergy SWELLING Verified 12/15/16 15:45 [Tetanus] venom-honey bee Allergy SWELLING Verified 12/15/16 15:45 [bee venom (honey bee)] IV Contrast Allergy Intermediate Burning, Uncoded 12/15/16 15:45 Swelling, Hives Past Medical History - heen HEENT History: Denies History Cardiovascular History: Hypertension Additional Cardiovasular History: HX OF SVT Respiratory History: Other (please comment) Additional Respiratory History: chronic tobacco use, quit approx 4 months ago Gastrointestinal History: GERD, Peptic Ulcer Disease Genitourinary History: Kidney Stones Additional Genitourinary History: x9 WITH SONIC WAVES, LAZER AND SHUNTS TO REMOVE Endocrine History: Type 2 Diabetes (oral), Hypothyroidism, Other (please comment ) Additional Endocrine History: BORDERLINE ACCORDING TO PATIENT Musculoskeletal History: Back Pain, Back Injury, Other (please comment) Prosthesis or Implant: No Additional Musculoskeletal History: lumbar spine surgery, MULTIPLE L5-S1 INJECTIONS Neurological History: Denies History Blood Disorders: Denies History Psychiatric History: Depression, PTSD History of Sexually Transmitted Diseases: No Female Reproductive History: Hysterectomy Additional Female Reproductive History: COMPLETE HYSTERECTOMY Obstetrical History: Delivery Additional Obstetrical History: x1 Cancer History: Denies History In Past Year Been Physically Harmed or Verbally Threatened: No (PER PATIENT) History of MDRO: No History of Other Communicable Diseases: No Tobacco Use: Former Smoker Alcohol Use: Occasionally Substance Use Type: None Previous Surgical History: Yes Type / Date of Surgery: LITHOTRIPSY/ x1; COMPLETE HYSTERECTOMY. BACK FX/ SCIATICA SURGERY. SHUNTS FOR KIDNEY STONES Anesthesia Reactions: No Malignant Hyperthermia: No Family History of Malignant Hyperthermia: No Significant Family History: No pertinent family hx Past Medical History Reviewed: Reviewed - No Changes ROS - Limitations ROS Limitations: No Limitations Constitution: REPORTS: Denies Symptoms Cardiovascular: REPORTS: Denies Cardiac Symptoms Respiratory: REPORTS: Denies Resp Symptoms Neurological: REPORTS: Denies Neuro Symptoms General Adult Exam - General Appearance General Appearance: POSITIVE: Alert, Cooperative, No Acute Distress - HEENT HEENT: POSITIVE: Head Inspection Nml - Neck Neck: POSITIVE: Normal Inspection - Respiratory Respiratory: POSITIVE: No Respiratory Distress, Breath Sounds Normal - Cardiovascular Cardiovascular: POSITIVE: Regular Rate & Rhythm, No Murmur - Abdomen Abdomen: Soft: (All Quadrants), Normal Bowel Sounds: (All Quadrants), Denies Tenderness: (All Quadrants) - Back Back: POSITIVE: Normal Inspection - Extremities Extremity: Normal Inspection: (All Extremities) - Neurological / Psychological Neurological: POSITIVE: Affect Apporpriate, Oriented X3, Motor Normal General Adult Progress - Results Reviewed by me Lab Results Reviewed: Yes Lab Results:: Laboratory Results 12/15/16 Range/Units 16:08 WBC 8.03 (4.8-10.8) 10^3/uL RBC 4.64 (4.20-5.40) 10^6/uL Hgb 14.6 (12.0-16.0) g/dL Hct 42.2 (37.0-47.0) % MCV 90.9 (81-99) FL MCH 31.5 H (27-31) PG MCHC 34.6 (33-37) g/dL RDW Std Deviation 43.6 (39-50) fL RDW Coeff of Clara 13.3 (11.5-14.5) % Plt Count 265 (140-350) 10*3/uL MPV 9.4 (7.4-12.2) FL Immature Gran % (Auto) 0.2 (0-5) % Neut % (Auto) 61.5 (50-80) % Lymph % (Auto) 30.0 (10-50) % Haywood % (Auto) 6.2 (5-15) % Eos % (Auto) 1.4 (0-8) % Baso % (Auto) 0.7 (0-1) % Immature Gran # (Auto) 0.02 10*3/UL Neut # (Auto) 4.93 10*3/UL Lymph # (Auto) 2.41 10*3/uL Haywood # (Auto) 0.50 (0.3-0.8) 10*3/UL Eos # (Auto) 0.11 10*3/UL Baso # (Auto) 0.06 10*3/UL WBC Morphology Comment Normal morphology (NORM) Plt Morphology Comment Normal morphology (NORM) RBC Morph Comment Normal morphology (NORM) ESR 23 H (0-20) MM/HR Sodium 143 (135-145) meq/L Potassium 4.5 (3.8-5.2) meq/L Chloride 106 (98-112) meq/L Carbon Dioxide 25 (23-33) meq/L Anion Gap 12 (5-20) BUN 29 H (7-22) mg/dL Creatinine 1.0 (0.50-1.20) mg/dL Estimated GFR > 60 (>60 ml/min/1.73m(2)) BUN/Creatinine Ratio 29.00 H (6-20) Glucose 116 H (78-110) mg/dL Calculated Osmolality 302.0 H (267-292) mOsm/kg Calcium 9.8 (8.7-10.7) mg/dL Total Bilirubin 0.7 (0.3-1.2) mg/dL AST 37 (8-39) IU/L ALT 44 (9-52) IU/L Alkaline Phosphatase 92 (38-126) IU/L Total Creatine Kinase 51 (30-136) IU/L C-Reactive Protein 0.7 (0.0-0.9) mg/dL Total Protein 8.4 H (6.1-8.0) g/dL Albumin 4.7 (3.5-4.8) g/dL Globulin 3.7 (2.50-4.10) g/dL Albumin/Globulin Ratio 1.20 L (1.3-2.0) mg/g TSH 0.936 (0.2700-4.2000) uIU/mL - Patient's Progress MDM / ED Course: I discussed with the patient that she's had substantial workup in regards to her symptoms. I checked some new labs to make sure she have any acute changes in electrolytes or hemoglobin or signs of infection which could mean epidural abscess or something concerning like that. I didn't see anything. I also didn' t see that she's ever had a vitamin B12 or folate level done so I added that. She's been working on her TSH and hypothyroidism dose so he got a TSH which is pending as well. Ultimately I don't feel like I have a good answer for her issues and she has seen specialists that have also been trying to figure something out for her and apparently with no substantial avail. I've encouraged her to get back in with her neurologist as soon as possible I offered to order MRI of her lumbar spine and/or lumbar and cervical spine tomorrow but she would like to hold off on those studies. She wants to get a hold of her neurologist and/or primary care provider prior to ordering any more tests or studies. I told her to get back to the ER right away if she starts to develop fever or chills increasing pain and increasing weakness incontinence of any kind saddle anesthesia or any other signs or symptoms of concern. Patient Care Time - Estimated PCT Patient Care Time (In Minutes): 40 Vital Signs - Recent Vital Signs Vital Signs: Vital Signs (Last 8 hours) Temp Pulse Resp BP Pulse Ox 12/15/16 15:28 97.2 F 102 H 17 141/102 96 - VS Reviewed Vital Signs Reviewed: Yes Discharge Clinical Impression: Leg weakness, bilateral Thigh pain Qualifiers: Laterality: bilateral Qualifier Code: (M79.651) Pain in right thigh Discharge Disposition: Discharged to Home Condition: Stable Patient Instructions Given at Discharge: Weakness (ED) Additional Instructions: Contact her neurologist tomorrow and try to get in as soon as possible preferably tomorrow or the next day Call your primary care provider's office and see if he can get in with her primary care provider as soon as possible preferably 1-2 days Return to the emergency department with any incontinence saddle anesthesia worsening of weakness or paresthesias or fever or increasing back pain or any other changes that are concerning. Follow Up With: RODOLFO MONTEZ [Primary Care Provider] -
== END 2016-12-15 17:47 | disposition home or self-care (01) ==
LOC: ER 15:28
DX: M62.81 Muscle weakness (generalized) (principal); M79.652 Pain in left thigh; M79.651 Pain in right thigh; E11.9 Type 2 diabetes mellitus without complications; E03.9 Hypothyroidism, unspecified; I10 Essential (primary) hypertension
CPT/HCPCS: 80053; 82550; 82607; 82746; 84443; 85025; 85652; 86140; 99282

== ENCOUNTER → 2017-01-19 | Outpatient (CLI) | payer OTHER ==
--- NOTE | 2017-01-20 09:00 | DI ---
MRI LUMBAR SPINE W/O CN,01/19/2017 9:10 AM: Clinical History: Low back pain Previous Exam: July 27, 2016 Findings: Multiplanar MR images are obtained through the lumbar spine without contrast. Bony alignment is anatomic. No fractures are seen. Schmorl's nodes are noted of the lower thoracic sp ine. Vertebral body height is preserved. The spinal cord descends normally with a normal conus at the L1 level. The paraspinal musculature is unremarkable. Individual intervertebral disc spaces: L1/2: No significant stenosis. L2/3: No significant stenosis. L3/4: No significant stenosis. L4/5: There is a small broad-based disc bulge with some facet and ligamentum flavum hypertrophy causi ng no significant stenosis. L5/S1: There is disc desiccation, a broad-based disc bulge and annular fissuring contributing to a br oad-based disc bulge with a central component and some facet and ligamentum flavum hypertrophy contri buting to mild to moderate right and mild left neuroforaminal narrowing. This is essentially unchange d from the prior exam. Impression: No significant change since the prior exam.
== END ==
LOC: MRI 09:05
PROVIDERS: ATTEND Neurological Surgery
DX: M54.5 Low back pain (principal); M47.816 Spondylosis without myelopathy or radiculopathy, lumbar region; M51.17 Intervertebral disc disorders with radiculopathy, lumbosacral region
CPT/HCPCS: 72148

== ENCOUNTER 2017-01-26 08:04 | Inpatient (IN) | payer OTHER ==
[2017-01-26] MEDS ORDERED: NORMAL SALINE 10 ML SYRINGE FLUSH IVP PRN ×2 (08:18→10:26)
[2017-01-26] MEDS ORDERED: ONDANSETRON 4 MG/2 ML VIAL IVP ONE (08:18)
[2017-01-26] MEDS ORDERED: KETOROLAC 15 MG/1 ML VIAL IVP ONE (08:18)
[2017-01-26] MEDS ORDERED: Sodium Chloride 0.9% 1,000 ML PRIMARY IV ONE (08:18)
[2017-01-26] MEDS ORDERED: MORPHINE SULFATE 4 MG/1 ML IVP ONE (08:19)
[2017-01-26 08:29] LABS: BASOPHILS # (AUTO) 0.06 10*3/UL; BASOPHILS % (AUTO) 0.6 % (0-1); EOSINOPHILS # (AUTO) 0.27 10*3/UL; EOSINOPHILS % (AUTO) 2.9 % (0-8); HEMATOCRIT 43.3 % (37.0-47.0); HEMOGLOBIN 15.5 g/dL (12.0-16.0); LYMPHOCYTES # (AUTO) 3.21 10*3/uL; MEAN CORPUSCULAR HEMOGLOBIN 31.1 PG (27-31); MEAN CORPUSCULAR HGB CONC 35.8 g/dL (33-37); MEAN CORPUSCULAR VOLUME 86.9 FL (81-99); MEAN PLATELET VOLUME 10.4 FL (7.4-12.2); MONOCYTES # (AUTO) 0.55 10*3/UL (0.3-0.8); MONOCYTES % (AUTO) 5.8 % (5-15); NEUTROPHILS # (AUTO) 5.32 10*3/UL; NEUTROPHILS % (AUTO) 56.5 % (50-80); RED BLOOD COUNT 4.98 10^6/uL (4.20-5.40)
--- NOTE | 2017-01-26 08:30 | PDOC ---
Abdomen/Flank HPI - General Chief Complaint: Abdomen Pain Stated Complaint: ROLLED OVER IN BED @ 0330, SUDDEN R FLANK PAIN Date Seen by Provider: 01/26/17 Time Seen by Provider: 08:15 Source: POSITIVE: Patient Exam Limitations: POSITIVE: No limitations Nurse's Notes Reviewed & Considered: Yes - History of Present Illness Initial Comments: The patient is a 41-year-old female who presents to the emergency department with right flank pain. She states that she rolled over in bed this morning and had sudden onset of right flank pain. She has associated nausea and vomiting. She does have a history of kidney stones. In addition she reports that her urine has been foul smelling. She denies any dysuria or hematuria. She reports that the pain is worse with taking a deep breath and she feels somewhat short of breath as well. She denies any increased pain or swelling in her legs although she does have a pinched nerve in her back that causes some left leg pain. She does not have a known history of blood clots. She tried taking Percocet at home without any relief. - Patient Home Medications Home Medications: Home Medications Magnesium Oxide [Magnesium] 1 tab PO BID tab 06/29/16 Metformin HCl [Metformin Hcl Er] 2 tab PO BID #120 tab 08/24/16 Levothyroxine Sodium 1 tab PO DAILY #30 tab 09/20/16 Losartan/Hydrochlorothiazide [Losartan-Hctz 100-12.5 Mg Tab] 1 tab PO DAILY #30 tab 09/20/16 Varenicline Tartrate [Chantix] 1 tab PO BID #1 packet 09/22/16 Naproxen 1 tab PO BID #60 tab 11/17/16 Ascorbic Acid [Vitamin C] 500 mg PO DAILY 12/15/16 Cholecalciferol (Vitamin D3) [Vitamin D3] 5,000 unit PO DAILY 12/15/16 Cyclobenzaprine HCl 1 tab PO TID #90 tab 12/21/16 Gabapentin 2 cap PO TID #180 cap 12/21/16 Metoprolol Succinate 1 tab PO BID #60 tab 01/04/17 Oxycodone HCl/Acetaminophen [Percocet 7.5-325 Mg Tablet] 1 - 2 tab PO Q6H #60 tab 01/25/17 - Patient Allergies Allergies/Adverse Reactions: Allergies Allergy/AdvReac Type Severity Reaction Status Date / Time Sulfa (Sulfonamide Allergy Unknown NOT Verified 01/26/17 08:07 Antibiotics) APPLICABLE codeine [Codeine] Allergy HEADACHE Verified 01/26/17 08:07 Tetanus Vaccines and Toxoid Allergy SWELLING Verified 01/26/17 08:07 [Tetanus] venom-honey bee Allergy SWELLING Verified 01/26/17 08:07 [bee venom (honey bee)] IV Contrast Allergy Intermediate Burning, Uncoded 01/26/17 08:07 Swelling, Hives Past Medical History - heen HEENT History: Denies History Cardiovascular History: Hypertension Additional Cardiovasular History: HX OF SVT Respiratory History: Other (please comment) Additional Respiratory History: chronic tobacco use, quit approx 4 months ago Gastrointestinal History: GERD, Peptic Ulcer Disease Genitourinary History: Kidney Stones Additional Genitourinary History: x9 WITH SONIC WAVES, LAZER AND SHUNTS TO REMOVE Endocrine History: Type 2 Diabetes (oral), Hypothyroidism, Other (please comment ) Additional Endocrine History: BORDERLINE ACCORDING TO PATIENT Musculoskeletal History: Back Pain, Back Injury, Other (please comment) Prosthesis or Implant: No Additional Musculoskeletal History: lumbar spine surgery, MULTIPLE L5-S1 INJECTIONS Neurological History: Denies History Blood Disorders: Denies History Psychiatric History: Depression, PTSD History of Sexually Transmitted Diseases: No LMP: 2002 Obstetrical History: Delivery Additional Obstetrical History: x1 Cancer History: Denies History In Past Year Been Physically Harmed or Verbally Threatened: No (PER PATIENT) History of MDRO: No History of Other Communicable Diseases: No Tobacco Use: Former Smoker Alcohol Use: None Substance Use Type: None Previous Surgical History: Yes Type / Date of Surgery: LITHOTRIPSY/ x1; COMPLETE HYSTERECTOMY. BACK FX/ SCIATICA SURGERY. SHUNTS FOR KIDNEY STONES Anesthesia Reactions: No Malignant Hyperthermia: No Family History of Malignant Hyperthermia: No Significant Family History: No pertinent family hx Past Medical History Reviewed: Reviewed - No Changes ROS - Limitations ROS Limitations: No Limitations Constitution: DENIES: Chills, Fever Cardiovascular: REPORTS: Denies Cardiac Symptoms Respiratory: REPORTS: Hurts To Breathe, Shortness Of Breath Neurological: REPORTS: Denies Neuro Symptoms Gastrointestinal: REPORTS: Nausea, Vomitting Musculoskeletal: DENIES: Calf Pain, Lower Extremity Swelling, Muscle Aches Genitourinary: REPORTS: Other (Foul urine). DENIES: Dysuria, Hematuria, Difficulty Urinating Abdominal/Flank Pain PE - General Appearance General Appearance: POSITIVE: Alert, Cooperative - HEENT HEENT: POSITIVE: Head Inspection Nml, Eyes Inspection Nml, Ears Inspection Nml, Nose Inspection Nml, Pharynx Inspect. Nml - Neck Neck: POSITIVE: Normal Inspection - Respiratory Respiratory: POSITIVE: No Respiratory Distress, Breath Sounds Normal - Cardiovascular Cardiovascular: POSITIVE: Regular Rate and Rhythm, Heart Sounds Normal - Abdomen Abdomen: Soft: (All Quadrants), Denies Tenderness: (All Quadrants), No Distention: (All Quadrants) - Back Back: POSITIVE: CVA Tenderness (R) - Skin Skin: POSITIVE: Intact, No Rash - Extremities Extremity: Normal ROM: (All Extremities), Normal Inspection: (All Extremities) - Neurological Neurological: POSITIVE: Oriented X3, Motor Normal, Sensation Normal Abdomen Progress - Results Reviewed by me Xrays/CTs/US Reviewed by me: Yes Discussed with Radiologist: Yes Radiology Findings: no stone, no hydro, renal calification Lab Results Reviewed: Yes Lab Results:: Laboratory Results 01/26/17 01/26/17 Range/Units 08:21 09:43 WBC 9.43 (4.8-10.8) 10^3/uL RBC 4.98 (4.20-5.40) 10^6/uL Hgb 15.5 (12.0-16.0) g/dL Hct 43.3 (37.0-47.0) % MCV 86.9 (81-99) FL MCH 31.1 H (27-31) PG MCHC 35.8 (33-37) g/dL RDW Std Deviation 38.8 L (39-50) fL RDW Coeff of [place] 12.3 (11.5-14.5) % Plt Count 230 (140-350) 10*3/uL MPV 10.4 (7.4-12.2) FL Immature Gran % (Auto) 0.2 (0-5) % Neut % (Auto) 56.5 (50-80) % Lymph % (Auto) 34.0 (10-50) % [place] % (Auto) 5.8 (5-15) % Eos % (Auto) 2.9 (0-8) % Baso % (Auto) 0.6 (0-1) % Immature Gran # (Auto) 0.02 10*3/UL Neut # (Auto) 5.32 10*3/UL Lymph # (Auto) 3.21 10*3/uL [place] # (Auto) 0.55 (0.3-0.8) 10*3/UL Eos # (Auto) 0.27 10*3/UL Baso # (Auto) 0.06 10*3/UL WBC Morphology Comment Normal morphology (NORM) Plt Morphology Comment Normal morphology (NORM) RBC Morph Comment Normal morphology (NORM) D-Dimer 0.21 (0.00-0.59) mg/L Sodium 140 (135-145) meq/L Potassium 4.0 (3.8-5.2) meq/L Chloride 109 (98-112) meq/L Carbon Dioxide 17 L (23-33) meq/L Anion Gap 14 (5-20) BUN 21 (7-22) mg/dL Creatinine 0.9 (0.50-1.20) mg/dL Estimated GFR > 60 (>60 ml/min/1.73m(2)) BUN/Creatinine Ratio 23.33 H (6-20) Glucose 141 H (78-110) mg/dL Calculated Osmolality 294.0 H (267-292) mOsm/kg Calcium 10.0 (8.7-10.7) mg/dL Total Bilirubin 0.8 (0.3-1.2) mg/dL AST 29 (8-39) IU/L ALT 50 (9-52) IU/L Alkaline Phosphatase 77 (38-126) IU/L C-Reactive Protein < 0.5 (0.0-0.9) mg/dL Total Protein 7.9 (6.1-8.0) g/dL Albumin 4.8 (3.5-4.8) g/dL Globulin 3.1 (2.50-4.10) g/dL Albumin/Globulin Ratio 1.50 (1.3-2.0) mg/g Amylase 56 (30-110) U/L Lipase 48 (23-300) IU/L Ur Collection Type Clean catch urine Urine Color Yellow Urine Clarity Clear (CLEAR) Urine pH 5.5 (5.0-8.5) Ur Specific [place] 1.025 (1.005-1.030) Urine Protein 30 (NEG) mg/dl Urine Glucose (UA) Negative (NEG) mg/dL Urine Ketones Trace (NEG) Urine Occult Blood Trace-lysed H (NEG) Urine Nitrate Positive H (NEG) Urine Bilirubin Small (NEG) Urine Urobilinogen 0.2 (0.2) EU/dL Ur Leukocyte Esterase Small (NEG) Urine RBC 8-10 (NONE) /hpf Urine WBC 30-40 (NONE) Ur Squamous Epith Cells None (NONE) Ur Renal Epithelial Cell None (NONE) Urine Crystals None Urine Bacteria Many (NONE) Urine Casts None (NONE) Urine Mucus None (NONE) Urine Trichomonas None (NONE) Urine Yeast None (NONE) Ur Culture Indicated? Culture set - Patient's Progress MDM / ED Course: The patient was actively dry heaving on arrival. An IV was established and she received a 1 L bolus of normal saline as well as morphine 4 mg IV, Toradol 15 mg IV and Zofran 4 mg IV. Patient had continued pain and dry heaves--recieved dilaudid and compazine. Contiued to have nausea and o2 sats dropped, was placed on oxygen. Urine positive for infection, culture pending. CT shows no stone or hydronephrosis. Patient will be admitted for pyelonephritis. Shedid recieve [address] Rizzo has agreed to admit. - Consult Counseled: POSITIVE: Patient, Family, RE: Lab Results, RE: Radiology Results, RE : DX Patient Care Time - Estimated PCT Patient Care Time (In Minutes): 35 Vital Signs - Recent Vital Signs Vital Signs: Vital Signs (Last 8 hours) Temp Pulse Resp BP Pulse Ox 01/26/17 08:31 96.8 F 90 26 H 129/90 99 01/26/17 08:04 96.8 F 95 26 H 124/98 99 - VS Reviewed Vital Signs Reviewed: Yes Discharge Clinical Impression: Pyelonephritis, Vomiting Discharge Disposition: Admit to Inpatient Condition: Stable Date Decision to Admit to Inpatient: 01/26/17 Time Decision to Admit to Inpatient: 10:05
[2017-01-26 08:33] LABS: PLATELET MORPHOLOGY COMMENT NORMAL MORPHOLOGY (NORM); RBC MORPHOLOGY COMMENT NORMAL MORPHOLOGY (NORM); WBC MORPHOLOGY COMMENT NORMAL MORPHOLOGY (NORM)
[2017-01-26 08:41] LABS: BLOOD UREA NITROGEN 21 mg/dL (7-22); BUN/CREATININE RATIO 23.33 (6-20); EST GLOMERULAR FILTRATION > 60 (>60 ml/min/1.73m(2)); LIPASE 48 IU/L (23-300); SERUM ALBUMIN 4.8 g/dL (3.5-4.8)
[2017-01-26 08:43] LABS: C-REACTIVE PROTEIN < 0.5 mg/dL (0.0-0.9)
[2017-01-26] MEDS ORDERED: HYDROmorphone 2 MG/1 ML IVP ONE (08:45)
[2017-01-26] MEDS ORDERED: Prochlorperazine Edisylate Inj 10mg/2ml vial IVP ONE (08:45)
[2017-01-26 09:47] LABS: BILIRUBIN,URINE SMALL (NEG); CLARITY,URINE CLEAR (CLEAR); COLOR,URINE YELLOW; GLUCOSE, URINE (UA) NEGATIVE (NEG); NITRATE,URINE POSITIVE (NEG); OCCULT BLOOD,URINE Trace-lysed (NEG); PH,URINE 5.5 (5.0-8.5); PROTEIN,URINE 30 mg/dl (NEG); UROBILINOGEN,URINE 0.2 EU/dL (0.2)
[2017-01-26 09:54] LABS: BACTERIA,URINE MANY; URINE SAMPLE TYPE CLEAN CATCH URINE; WBC,URINE 30-40
[2017-01-26] MEDS ORDERED: cefTRIAXone Inj 2 GM in Sodium Chloride 0.9% 100 ML IV ONE (09:55)
[2017-01-26] MEDS ORDERED: LIDOCAINE W/ SODIUM BICARB 0.5 ML SYR SUBD PRN (10:26)
[2017-01-26] MEDS ORDERED: ACETAMINOPHEN 325 MG TABLET PO PRN (10:26)
[2017-01-26] MEDS ORDERED: BISACODYL 5 MG TABLET PO PRN (10:26)
[2017-01-26] MEDS ORDERED: Cefotaxime Inj 2 GM in Sodium Chloride 0.9% 100 ML IV SCH ×2 (10:30→21:00)
[2017-01-26] MEDS ORDERED: Prochlorperazine Edisylate Inj 10mg/2ml vial IM ONE (11:06)
[2017-01-26] MEDS: Sodium Chloride 0.9% 1,000 ML PRIMARY IV SCH ×3 (11:15→21:07)
--- NOTE | 2017-01-26 13:06 | DI ---
CT ABDOMEN/PELVIS W/O CONTRAST,01/26/2017 8:46 AM: Clinical History: Right flank pain. Previous Exam: May 26, 2016 Findings: Multiple helically acquired CT images are obtained through the abdomen and pelvis without contrast, a nd demonstrate a few renal parenchymal stones. The appendix is normal. The urinary bladder is unremarkable. Large and small bowel loops are unremarkable. The liver demonstrates some mild diffuse fatty infiltration. The gallbladder is normal. The spleen, p ancreas and adrenals are unremarkable. There is no hydronephrosis nor nephrolithiasis. Skeletal structures are unremarkable. There is loss of intervertebral disc height at L5/S1 with disc desiccation and vacuum disc phenomenon . There is no mesenteric or retroperitoneal lymphadenopathy. Impression: Bilateral renal parenchymal stones without obstructive uropathy.
--- NOTE | 2017-01-26 13:11 | PDOC ---
History and Physical - History of Present Illness History of Present Illness: Very nice 41-year-old female who presented to the ER with right flank pain she states that she has been smelling her urine and being not normal over the past week with some increased urinary frequency but no pain this morning she had sudden onset of right flank pain with nausea and vomiting. history kidney stones and CT scan did not reveal any stones. Her urine was positive was admitted for clinical diagnosis of pyelonephritis Past Medical History Medical History: Depression, hypothyroidism, chronic back pain from a pinched nerve Tobacco Use: Former Smoker Substance Use Type: None Medication / Allergies Home Medications: Home Medications Medication Instructions Recorded Confirmed Type Magnesium Oxide [Magnesium] 1 tab PO BID tab 06/29/16 01/26/17 History Metformin HCl [Metformin Hcl Er] 2 tab PO BID #120 tab 08/24/16 01/26/17 Clinic Levothyroxine Sodium 1 tab PO DAILY #30 tab 09/20/16 01/26/17 Clinic Losartan/Hydrochlorothiazide 1 tab PO DAILY #30 tab 09/20/16 01/26/17 Clinic [Losartan-Hctz 100-12.5 Mg Tab] Varenicline Tartrate [Chantix] 1 tab PO BID #1 packet 09/22/16 01/26/17 Clinic Naproxen 1 tab PO BID #60 tab 11/17/16 01/26/17 Clinic Ascorbic Acid [Vitamin C] 500 mg PO DAILY 12/15/16 01/26/17 History Cholecalciferol (Vitamin D3) 5,000 unit PO DAILY 12/15/16 01/26/17 History [Vitamin D3] Cyclobenzaprine HCl 1 tab PO TID #90 tab 12/21/16 01/26/17 Clinic Gabapentin 2 cap PO TID #180 cap 12/21/16 01/26/17 Clinic Metoprolol Succinate 1 tab PO BID #60 tab 01/04/17 01/26/17 Clinic Oxycodone HCl/Acetaminophen 1 - 2 tab PO Q6H #60 tab 01/25/17 01/26/17 Clinic [Percocet 7.5-325 Mg Tablet] Allergies/Adverse Reactions: Allergies Allergy/AdvReac Type Severity Reaction Status Date / Time Sulfa (Sulfonamide Allergy Unknown NOT Verified 01/26/17 08:07 Antibiotics) APPLICABLE codeine [Codeine] Allergy HEADACHE Verified 01/26/17 08:07 Tetanus Vaccines and Toxoid Allergy SWELLING Verified 01/26/17 08:07 [Tetanus] venom-honey bee Allergy SWELLING Verified 01/26/17 08:07 [bee venom (honey bee)] IV Contrast Allergy Intermediate Burning, Uncoded 01/26/17 08:07 Swelling, Hives Review of Systems - Review of Systems All Systems: Reviewed & No Additional Complaints Except as Stated - Mouth/Throat Mouth/Throat Exam: DENIES: Negative System Review, Dental Problems, Oral Ulcers , Sore Throat, Hoarseness, Dysphagia, Dental Pain, Other, See HPI - Cardiovascular Cardiovascular: DENIES: Negative System Review, Chest Pain, Edema, Syncope, Palpitations, Orthopnea, Paroxysmal Nocturnal Dyspnea, Other, See HPI - Gastrointestinal Gastrointestinal / Abdominal: REPORTS: Nausea, Vomiting - Genitourinary Genitourinary: REPORTS: Urgency Exam - Vitals Vital Signs: Vital Signs Temperature 96.2 F Temperature Source Temporal Artery Scan Pulse Rate 74 Respiratory Rate 17 Blood Pressure 110/74 Pulse Ox 97 Oxygen Flow Rate 2 Oxygen Delivery Method Nasal Cannula Height 5 ft 6 in Weight 92.351 kg - General General Appearance: POSITIVE: No Acute Distress, Cooperative - Head Head Exam: POSITIVE: Normal Inspection, Normocephalic, Atraumatic - Respiratory Respiratory Exam: POSITIVE: Clear to Auscultation - Bilaterally, Breathing Non Labored, Normal To Percussion, Normal to Percussion and Palpation - Cardiovascular Cardiovascular Exam: POSITIVE: RRR, No Murmur, No Clicks, No Gallops - GI/Abdominal GI/Abdominal Exam: POSITIVE: Normal Bowel Sounds, Non Tender, Non Distended, Soft. NEGATIVE: Guarding, Mass Additional GI/Abdominal Exam Details: Positive for right flank pain - Extremities Extremities Exam: POSITIVE: No Clubbing Present, No Edema Present - Neurological Neurological Exam: POSITIVE: Alert, Oriented x 3, No Facial Droop, Speech Intact / Clear Results - Labs CBC and BMP: 01/26/17 08:21 01/26/17 08:21 Assessment and Plan - Patient Problems (1) Pyelonephritis Current Visit: Yes Status: Acute Comment: Await cultures continue ceftriaxone 2 g daily plus IV fluids for dehydration we'll await urine cultures and blood cultures (2) Pain Current Visit: Yes Status: Acute Comment: Narrative pyelo-we'll treat with dilaudid 1 mg every 2 hours when necessary
[2017-01-26] MEDS: GABAPENTIN 300 MG CAPSULE PO SCH ×2 (15:42→21:15)
[2017-01-26] MEDS: CYCLOBENZAPRINE 10 MG TABLET PO SCH ×2 (15:43→21:16)
[2017-01-26] MEDS: HEPARIN 5000 UNIT/1 ML SUBCUT SCH ×2 (15:43→22:53)
[2017-01-26] MEDS: HYDROmorphone 2 MG/1 ML IVP PRN ×2 (15:48→22:53)
[2017-01-26] MEDS: ONDANSETRON 4 MG/2 ML VIAL IVP PRN ×2 (15:49→21:08)
[2017-01-26] MEDS ORDERED: VARENICLINE TARTRATE PO SCH (21:00)
[2017-01-26] MEDS: metFORMIN ER 500 MG TABLET PO SCH (21:15)
[2017-01-26] MEDS: METOPROLOL SUCCINATE 25 MG SR 24H TABLET PO SCH (21:16)
[2017-01-26] MEDS: MAGNESIUM OXIDE 400 MG TABLET PO SCH (21:18)
[2017-01-27 04:42] LABS: BASOPHILS # (AUTO) 0.04 10*3/UL; BASOPHILS % (AUTO) 0.7 % (0-1); EOSINOPHILS # (AUTO) 0.33 10*3/UL; EOSINOPHILS % (AUTO) 5.4 % (0-8); HEMATOCRIT 35.2 % (37.0-47.0); HEMOGLOBIN 12.4 g/dL (12.0-16.0); LYMPHOCYTES # (AUTO) 3.04 10*3/uL; MEAN CORPUSCULAR HEMOGLOBIN 31.9 PG (27-31); MEAN CORPUSCULAR HGB CONC 35.2 g/dL (33-37); MEAN CORPUSCULAR VOLUME 90.5 FL (81-99); MEAN PLATELET VOLUME 10.9 FL (7.4-12.2); MONOCYTES # (AUTO) 0.49 10*3/UL (0.3-0.8); MONOCYTES % (AUTO) 8.1 % (5-15); NEUTROPHILS # (AUTO) 2.16 10*3/UL; NEUTROPHILS % (AUTO) 35.6 % (50-80); RED BLOOD COUNT 3.89 10^6/uL (4.20-5.40)
[2017-01-27 04:48] LABS: PLATELET MORPHOLOGY COMMENT NORMAL MORPHOLOGY (NORM); RBC MORPHOLOGY COMMENT NORMAL MORPHOLOGY (NORM); WBC MORPHOLOGY COMMENT NORMAL MORPHOLOGY (NORM)
[2017-01-27] MEDS: Sodium Chloride 0.9% 1,000 ML PRIMARY IV SCH (04:48)
[2017-01-27 04:56] LABS: BLOOD UREA NITROGEN 20 mg/dL (7-22); CALCIUM 8.4 mg/dL (8.7-10.7); EST GLOMERULAR FILTRATION > 60 (>60 ml/min/1.73m(2)); SERUM ALBUMIN 3.1 g/dL (3.5-4.8)
[2017-01-27] MEDS ORDERED: LEVOTHYROXINE 100 MCG TABLET PO SCH (05:30)
[2017-01-27 07:13] VITALS: RESP 20; TEMP 98.2
[2017-01-27] MEDS: ONDANSETRON 4 MG/2 ML VIAL IVP PRN (07:15)
[2017-01-27] MEDS: HYDROmorphone 2 MG/1 ML IVP PRN (07:16)
[2017-01-27] MEDS: HEPARIN 5000 UNIT/1 ML SUBCUT SCH (07:18)
[2017-01-27] MEDS ORDERED: LOSARTAN 50 MG TABLET PO SCH (09:00)
[2017-01-27] MEDS ORDERED: HYDROCHLOROTHIAZIDE 12.5 MG CAPSULE PO SCH (09:00)
[2017-01-27] MEDS: GABAPENTIN 300 MG CAPSULE PO SCH (09:02)
[2017-01-27] MEDS: metFORMIN ER 500 MG TABLET PO SCH (09:02)
[2017-01-27] MEDS: CYCLOBENZAPRINE 10 MG TABLET PO SCH (09:02)
[2017-01-27] MEDS: METOPROLOL SUCCINATE 25 MG SR 24H TABLET PO SCH (09:03)
[2017-01-27] MEDS: MAGNESIUM OXIDE 400 MG TABLET PO SCH (09:10)
--- NOTE | 2017-01-27 10:48 | DCSUMMARY ---
Hospitalization Summary Primary Diagnosis:: pyelonephritis Hospital Course: Final Discharge Diagnosis: Current Visit Problems Problem Status Priority Diagnosed Code Pain Acute R52 Pyelonephritis Acute N12 Vomiting Acute R11.10 Diagnostic Data, Laboratory Data, and Procedures of Signifigance: Laboratory Results 01/26/17 01/26/17 01/27/17 Range/Units 08:21 09:43 04:22 WBC 9.43 6.06 (4.8-10.8) 10^3/uL RBC 4.98 3.89 L (4.20-5.40) 10^6/uL Hgb 15.5 12.4 (12.0-16.0) g/dL Hct 43.3 35.2 L (37.0-47.0) % MCV 86.9 90.5 (81-99) FL MCH 31.1 H 31.9 H (27-31) PG MCHC 35.8 35.2 (33-37) g/dL RDW Std Deviation 38.8 L 38.5 L (39-50) fL RDW Coeff of [place] 12.3 12.0 (11.5-14.5) % Plt Count 230 137 L (140-350) 10*3/uL MPV 10.4 10.9 (7.4-12.2) FL Immature Gran % (Auto) 0.2 0 (0-5) % Neut % (Auto) 56.5 35.6 L (50-80) % Lymph % (Auto) 34.0 50.2 H (10-50) % [place] % (Auto) 5.8 8.1 (5-15) % Eos % (Auto) 2.9 5.4 (0-8) % Baso % (Auto) 0.6 0.7 (0-1) % Immature Gran # (Auto) 0.02 0 10*3/UL Neut # (Auto) 5.32 2.16 10*3/UL Lymph # (Auto) 3.21 3.04 10*3/uL [place] # (Auto) 0.55 0.49 (0.3-0.8) 10*3/UL Eos # (Auto) 0.27 0.33 10*3/UL Baso # (Auto) 0.06 0.04 10*3/UL WBC Morphology Comment Normal morphology Normal morphology (NORM) Plt Morphology Comment Normal morphology Normal morphology (NORM) RBC Morph Comment Normal morphology Normal morphology (NORM) D-Dimer 0.21 (0.00-0.59) mg/L Sodium 140 141 (135-145) meq/L Potassium 4.0 3.8 (3.8-5.2) meq/L Chloride 109 111 (98-112) meq/L Carbon Dioxide 17 L 25 (23-33) meq/L Anion Gap 14 5 (5-20) BUN 21 20 (7-22) mg/dL Creatinine 0.9 0.8 (0.50-1.20) mg/dL Estimated GFR > 60 > 60 (>60 ml/min/1.73m(2)) BUN/Creatinine Ratio 23.33 H 25.00 H (6-20) Glucose 141 H 88 (78-110) mg/dL Calculated Osmolality 294.0 H 293.0 H (267-292) mOsm/kg Calcium 10.0 8.4 L (8.7-10.7) mg/dL Total Bilirubin 0.8 0.4 (0.3-1.2) mg/dL AST 29 21 (8-39) IU/L ALT 50 40 (9-52) IU/L Alkaline Phosphatase 77 54 (38-126) IU/L C-Reactive Protein < 0.5 (0.0-0.9) mg/dL Total Protein 7.9 5.5 L (6.1-8.0) g/dL Albumin 4.8 3.1 L (3.5-4.8) g/dL Globulin 3.1 2.4 L (2.50-4.10) g/dL Albumin/Globulin Ratio 1.50 1.20 L (1.3-2.0) mg/g Amylase 56 (30-110) U/L Lipase 48 (23-300) IU/L Ur Collection Type Clean catch urine Urine Color Yellow Urine Clarity Clear (CLEAR) Urine pH 5.5 (5.0-8.5) Ur Specific [place] 1.025 (1.005-1.030) Urine Protein 30 (NEG) mg/dl Urine Glucose (UA) Negative (NEG) mg/dL Urine Ketones Trace (NEG) Urine Occult Blood Trace-lysed H (NEG) Urine Nitrate Positive H (NEG) Urine Bilirubin Small (NEG) Urine Urobilinogen 0.2 (0.2) EU/dL Ur Leukocyte Esterase Small (NEG) Urine RBC 8-10 (NONE) /hpf Urine WBC 30-40 (NONE) Ur Squamous Epith Cells None (NONE) Ur Renal Epithelial Cell None (NONE) Urine Crystals None Urine Bacteria Many (NONE) Urine Casts None (NONE) Urine Mucus None (NONE) Urine Trichomonas None (NONE) Urine Yeast None (NONE) Ur Culture Indicated? Culture set History and Physical pertinent to Admission: Course of Hospitalization: This very nice 41-year-old female who comes in with flank pain secondary to clinical diagnosis of pyelonephritis and UTI she received the ceftriaxone. And there is much improvement and with the resolution of her pain today I recommended she receive it today and tomorrow morning IV antibiotics before discharging home but patient does not want to stay in the hospital any longer I told her that they might be too early and she could fail by mouth therapy she says that she understands this and she will take a chance she will drink palliative fluids I did prescribe the Cipro 500 by mouth twice a day for 7 more days I will also contact Dr. Fiore to make her aware. Daughter was in the room as well discussed with nursing also in agreement. On the date of discharge, the patient was examined: Gen.: No acute distress, alert, nontoxic Heart: Regular rate and rhythm, no murmurs, clicks, gallops, or rubs Lungs: Clear to auscultation bilaterally, breathing is nonlabored Abdomen/GI: Normal tones on auscultation, soft, nontender, nondistended Musculoskeletal/extremities: No clubbing, cyanosis, or edema Vitals reviewed and are listed below Assessment and Plan: 1. As per discharge assessments above 2. Disposition: Home 3. Condition on discharge, stable and improved. 4. Diet: regular diet 5. Activities: resume normal activities 6. Follow-Up: 1. PCP Dr. Fiore February 02 3:30 2. 7. Medications at the Time of Discharge: Home Medications Medication Instructions Recorded Confirmed Type Magnesium Oxide [Magnesium] 1 tab PO BID tab 06/29/16 01/26/17 History Metformin HCl [Metformin Hcl Er] 2 tab PO BID #120 tab 08/24/16 01/26/17 Clinic Levothyroxine Sodium 1 tab PO DAILY #30 tab 09/20/16 01/26/17 Clinic Losartan/Hydrochlorothiazide 1 tab PO DAILY #30 tab 09/20/16 01/26/17 Clinic [Losartan-Hctz 100-12.5 mg Tab] Varenicline Tartrate [Chantix] 1 tab PO BID #1 packet 09/22/16 01/26/17 Clinic Naproxen 1 tab PO BID #60 tab 11/17/16 01/26/17 Clinic Ascorbic Acid [Vitamin C] 500 mg PO DAILY 12/15/16 01/26/17 History Cholecalciferol (Vitamin D3) 5,000 unit PO DAILY 12/15/16 01/26/17 History [Vitamin D3] Cyclobenzaprine HCl 1 tab PO TID #90 tab 12/21/16 01/26/17 Clinic Gabapentin 2 cap PO TID #180 cap 12/21/16 01/26/17 Clinic Metoprolol Succinate 1 tab PO BID #60 tab 01/04/17 01/26/17 Clinic Oxycodone HCl/Acetaminophen 1 - 2 tab PO Q6H #60 tab 01/25/17 01/26/17 Clinic [Percocet 7.5-325 mg Tablet] Ciprofloxacin HCl [Cipro HCl] 500 mg PO Q12H #14 tab 01/27/17 Rx 8. Time, care, counseling and coordination of care for this discharge is greater than 30 minutes. Exam - Vitals Vital Signs: Vital Signs Temperature 98.2 F Temperature Source Oral Pulse Rate [Pulse Oximeter] 74 Pulse Rate 74 Respiratory Rate 20 Blood Pressure [Left Arm] 111/77 Blood Pressure 110/74 Pulse Ox 96 Oxygen Flow Rate 2 Oxygen Delivery Method Room Air Height 5 ft 6 in Weight 94.438 kg Patient Problems - Patient Problem List (1) Pyelonephritis Current Visit: Yes Status: Acute (2) Pain Current Visit: Yes Status: Acute
[2017-01-27] MEDS ORDERED: cefTRIAXone Inj 2 GM in Sodium Chloride 0.9% 100 ML IV SCH (11:00)
== END 2017-01-27 11:55 | disposition home or self-care (01) | DRG 690 ==
LOC: ER 08:04 → MED/SURG 10:12
PROVIDERS: ADMIT Internal Medicine; ATTEND Internal Medicine
DX: N10 Acute pyelonephritis (principal); R11.10 Vomiting, unspecified; R10.31 Right lower quadrant pain
CPT/HCPCS: 36415; 74176; 80053; 81001; 81003; 82150; 83690; 85025; 85379; 86140; 87077; 87088; 87186; 94761; 96374; 96375; 99284; J0696; J0780; J1170; J1644; J1885; J2270; J2405; J7030; J7050

== ENCOUNTER → 2017-02-03 | Outpatient (CLI) | payer OTHER | LOC: LAB 09:21 | PROVIDERS: ATTEND Student in an Organized Health Care Education/Training Program | DX: A09 Infectious gastroenteritis and colitis, unspecified (principal) | CPT/HCPCS: 87046; 87205; 87493 ==

== ENCOUNTER 2017-06-09 08:46 | Observation (INO) ==
[2017-06-09] MEDS ORDERED: Pantoprazole Inj 40 MG in Normal Saline Flush 10 ML IVP ONE (09:16)
[2017-06-09] MEDS ORDERED: Sodium Chloride 0.9% 1,000 ML PRIMARY IV ONE (09:16)
[2017-06-09] MEDS ORDERED: NORMAL SALINE 10 ML SYRINGE FLUSH IVP PRN ×2 (09:16→13:50)
[2017-06-09] MEDS ORDERED: HYDROmorphone 2 MG/1 ML IVP ONE (09:16)
[2017-06-09] MEDS ORDERED: ONDANSETRON 4 MG/2 ML VIAL IVP ONE ×2 (09:16→09:49)
[2017-06-09 09:37] LABS: BILIRUBIN,URINE NEGATIVE (NEG); CLARITY,URINE CLEAR (CLEAR); COLOR,URINE YELLOW (Y); GLUCOSE, URINE (UA) NEGATIVE (NEG); NITRATE,URINE NEGATIVE (NEG); OCCULT BLOOD,URINE NEGATIVE (NEG); PH,URINE 7.5 (5.0-8.5); PROTEIN,URINE NEGATIVE (NEG); UROBILINOGEN,URINE 0.2 EU/dL (0.2)
[2017-06-09 09:43] LABS: BASOPHILS % (AUTO) 0.5 % (0-1); EOSINOPHILS % (AUTO) 1.4 % (0-8); Hematocrit [HCT] 46.5 % (37.0-47.0); Hemoglobin [HGB] 15.9 g/dL (12.0-16.0); MEAN CORPUSCULAR HEMOGLOBIN 32.1 PG (27-31); MEAN CORPUSCULAR HGB CONC 34.1 g/dL (33-37); MEAN CORPUSCULAR VOLUME 94 FL (81-99); MEAN PLATELET VOLUME 8.7 FL (7.4-12.2); NEUTROPHILS # (AUTO) 5.44 10*3/UL; NEUTROPHILS % (AUTO) 73.8 % (50-80); RED BLOOD COUNT 4.94 10^6/uL (4.20-5.40)
[2017-06-09 09:44] LABS: BASOPHILS # (AUTO) 0.04 10*3/UL; LYMPHOCYTES # (AUTO) 1.42 10*3/uL; MONOCYTES # (AUTO) 0.37 10*3/UL (0.3-0.8); PLATELET MORPHOLOGY COMMENT NORMAL MORPHOLOGY (NORM); RBC MORPHOLOGY COMMENT NORMAL MORPHOLOGY (NORM); WBC MORPHOLOGY COMMENT NORMAL MORPHOLOGY (NORM)
[2017-06-09 09:50] LABS: BLOOD UREA NITROGEN 13 mg/dL (7-22); BUN/CREATININE RATIO 21.66 (6-20); LIPASE 45 IU/L (23-300); SERUM ALBUMIN 4.7 g/dL (3.5-4.8)
[2017-06-09 10:04] LABS: URINE SAMPLE TYPE CLEAN CATCH URINE
[2017-06-09] MEDS ORDERED: diphenhydrAMINE 50 MG/1 ML VIAL IVP ONE (10:23)
[2017-06-09] MEDS ORDERED: Prochlorperazine Edisylate Inj 10mg/2ml vial IVP ONE ×2 (10:23→14:00)
[2017-06-09 10:58] LABS: VENOUS PH 7.35 (7.32-7.42)
--- NOTE | 2017-06-09 11:46 | DI ---
CT Abdomen/Pelvis WO Contrast,06/09/2017 9:16 AM: Clinical History: Abdominal Previous Exam: March 01, 2007 Findings: Multiple helically acquired CT images are obtained through the abdomen and pelvis without contrast. T here is a large amount of stool within the distal colon. The urinary bladder is unremarkable. The appendix is within normal limits. Postsurgical changes are seen of the lower lumbar spine. The liver, gallbladder, spleen, pancreas, adrenals and kidneys are unremarkable there is no free air nor free fluid. The distal large bowel is somewhat featureless which can be a sign of inflammation, i s essentially unchanged compared with the prior. The kidneys and ureters are unremarkable. The pancreas is unremarkable. Impression: Large amount of stool throughout the distal colon otherwise unremarkable
[2017-06-09] MEDS ORDERED: ONDANSETRON 4 MG/2 ML VIAL IV ONE (13:30)
[2017-06-09] MEDS ORDERED: Prochlorperazine Edisylate Inj 10 MG in Sodium Chloride 0.9% 500 ML IV ONE (13:40)
[2017-06-09] MEDS ORDERED: CALCIUM CARBONATE 500 MG (TUMS) CHEWABLE TABLET PO PRN (13:50)
[2017-06-09] MEDS ORDERED: LIDOCAINE W/ SODIUM BICARB 0.5 ML SYR SUBD PRN (13:50)
[2017-06-09] MEDS ORDERED: Prochlorperazine Edisylate Inj 10mg/2ml vial IVP PRN (14:00)
[2017-06-09] MEDS ORDERED: Influenza 17-18 Vaccine (6mo+) Quad 60mcg/0.5ml PF IM ONE (14:14)
[2017-06-09] MEDS ORDERED: Fleet Enema 133ml RECTAL ONE (14:36)
[2017-06-09] MEDS: Sodium Chloride 0.9% 1,000 ML IV SCH ×2 (14:40→22:03)
[2017-06-09 14:43] LABS: AMPHETAMINE SCREEN NEGATIVE (NEG); METHADONE URINE SCREEN NEGATIVE (NEG); METHAMPHETAMINES SCREEN,URINE NEGATIVE (NEG); OPIATE SCREEN,URINE NEGATIVE (NEG); URINE SAMPLE TYPE VOIDED SPECIMEN; URINE SPECIFIC GRAVITY - MAN 1.016
[2017-06-09 14:44] LABS: CANNABINOID SCREEN,URINE POSITIVE (NEG); COCAINE SCREEN NEGATIVE (NEG)
[2017-06-09] MEDS: oxyCODONE/APAP 7.5/325 Tab 1 TAB TAB PO PRN ×2 (15:44→21:29)
--- NOTE | 2017-06-09 15:44 | PDOC ---
HPI - History of Present Illness Date of Service: 06/09/17 Time of Service: 14:00 Chief Complaint: Vomiting, abdominal pain and back pain a few weeks duration. Constipation the last 3 days History of Present Illness: This is a 42 years old female with medical history significant for history of hypothyroidism, hypertension, history of previous kidney stone, who had back surgery in April 2017 she had lumbar fusion, she said she been vomiting with abdominal pain since then. The last 3 days she's been constipated, she vomited more unable to take her pain medication unable also to take her other medications. Because of that she came into the ER apparently she was given pain medication she had a CT of the abdomen which showed constipation. She continued to vomit so she was given fluids and antibiotics and was admitted. By the time I saw her she was still feeling nauseated and she did not let me examine her abdomen until we gave her Compazine. He said the pain is all over the abdomen and in the lower back. He said she vomited multiple times today. She tried stool softener for the constipation and that did not work. No fever, no urinary symptoms. Past Medical History Medical History: 1. Depression. 2. hypothyroidism. 3. chronic back pain status post back in April 2017. 4. Hypertension. 5. GERD Surgical History: 1. Lumbar fusion in April 2017. 2. Carpal tunnel surgery. 3. History of renal calculus. 4. History of hysterectomy Family History: Reviewed an Not Pertinent Past Social History: She used to smoke, doesn't drink. No drugs Tobacco Use: Former Smoker In the Past 12 Months, Have Used or Abuse Any of the Following Substance: None Medication / Allergies Home Medications: Home Medications Medication Instructions Recorded Confirmed Type Magnesium Oxide [Magnesium] 1 tab PO BID tab 06/29/16 05/25/17 History Metformin HCl [Metformin Hcl Er] 2 tab PO BID #120 tab 08/24/16 06/09/17 Rx Losartan/Hydrochlorothiazide 1 tab PO DAILY #30 tab 09/20/16 05/25/17 Rx [Losartan-Hctz 100-12.5 mg Tab] Naproxen 1 tab PO BID #60 tab 11/17/16 05/25/17 Rx Ascorbic Acid [Vitamin C] 500 mg PO DAILY 12/15/16 06/09/17 History Metoprolol Succinate 1 tab PO BID #60 tab 01/04/17 05/25/17 Rx Ondansetron [Zofran Odt] 4 mg PO Q8H PRN #30 tab 01/31/17 05/25/17 History Gabapentin 1 tab PO TID #90 tab 02/01/17 05/25/17 Rx Pantoprazole Sodium [Protonix] 1 tab PO DAILY #30 tab 02/07/17 05/25/17 Rx Prochlorperazine Maleate 1 tab PO TID PRN #30 tab 02/23/17 05/25/17 Clinic Promethazine HCl [Phenergan] 25 mg PO Q4H PRN #20 tab 03/01/17 05/25/17 Rx levothyroxine 100 mcg tablet 1 tab PO DAILY #30 tab 03/28/17 06/09/17 Rx cyclobenzaprine 10 mg tablet 10 mg PO TID #90 tab 04/06/17 05/25/17 Rx cholecalciferol (vitamin D3) 5,000 1,000 unit PO DAILY tab 04/25/17 05/25/17 History unit tablet oxycodone-acetaminophen 7.5 mg-325 2 tab PO Q4-6H PRN #100 tab 05/23/17 Rx mg tablet ondansetron 4 mg disintegrating 4 mg PO Q6-8H PRN #14 tab 06/03/17 06/09/17 Rx tablet Allergies/Adverse Reactions: Allergies 3 Allergy/AdvReac Type Severity Reaction Status Date / Time Sulfa (Sulfonamide Allergy Unknown NOT Verified 06/09/17 08:52 Antibiotics) APPLICABLE codeine [Codeine] Allergy HEADACHE Verified 06/09/17 08:52 Tetanus Vaccines and Toxoid Allergy SWELLING Verified 06/09/17 08:52 [Tetanus] venom-honey bee Allergy SWELLING Verified 06/09/17 08:52 [bee venom (honey bee)] hydrocodone AdvReac Intermediate ITCHING Verified 06/09/17 08:52 IV Contrast Allergy Intermediate Burning, Uncoded 06/09/17 08:52 Swelling, Hives Review of Systems - Review of Systems All Systems: Reviewed & No Additional Complaints Except as Stated Exam - Vitals Vital Signs: Vital Signs Temperature 97.6 F Temperature Source Tympanic Pulse Rate [Pulse Oximeter 64 Right] Respiratory Rate 18 Blood Pressure [Left Arm] 126/86 Pulse Ox 94 Oxygen Delivery Method Room Air Height 5 ft 6 in Weight 192 lb 6.4 oz - General General Appearance: Obese Additional General Exam Details: she was laying in bed initially she did not let me examine her abdomen but then after the Compazine she did let me examine her abdomen. She was not very cooperative during exam - Head Head Exam: Normal Inspection - Eye Eye Exam: POSITIVE: Normal Appearance - ENT ENT Exam: POSITIVE: Normal Exam - Neck Neck Exam: Normal Inspection - Respiratory Respiratory Exam: POSITIVE: Clear to Auscultation - Bilaterally - Cardiovascular Cardiovascular Exam: POSITIVE: RRR - GI/Abdominal GI/Abdominal Exam: POSITIVE: Non Distended, Soft Additional GI/Abdominal Exam Details: Some tenderness in the epigastrium and in the lower abdomen below the umbilicus no guarding though. Bowel sound were sluggish - Rectal Rectal Exam: POSITIVE: Deferred - External Exam: POSITIVE: Deferred - Extremities Extremities Exam: POSITIVE: Normal Inspection - Back Back Exam: POSITIVE: Normal Inspection Additional Back Exam Details: Wound healed well. - Neurological Neurological Exam: POSITIVE: Alert, Oriented x 3, CN II-XII Intact, Speech Intact / Clear, Moves All Extremities Equally - Psychiatric Psychiatric Exam: POSITIVE: Flat Affect - Integumentary Integumentary Exam: POSITIVE: Normal Color Results - Labs CBC and BMP: 06/09/17 09:29 06/09/17 09:29 - Imaging Status: Report Reviewed by Me (CT abdomen and pelvis Large amount of stool throughout the distal colon otherwise unremarkable) Assessment and Plan - Patient Problems (1) Abdominal pain Current Visit: No Status: Acute Comment: This looks secondary to constipation, will give her fluid. Will write for Fleet Enema and disimpaction if necessary. If No more vomiting and she has a bowel movement then will put her on laxatives. Code(s): R10.9 - Unspecified abdominal pain (2) Chronic back pain Current Visit: Yes Status: Acute Comment: Will put her on her medications. Code(s): M54.9 - Dorsalgia, unspecified; G89.29 - Other chronic pain (3) Hypothyroidism Current Visit: Yes Status: Acute Comment: We'll resume her previous medications Code(s): E03.9 - Hypothyroidism, unspecified (4) Metabolic acidosis, increased anion gap Current Visit: Yes Status: Acute Comment: Will put her on some fluids and repeat her labs in a.m. Code(s): E87.2 - Acidosis
--- NOTE | 2017-06-09 16:08 | PDOC ---
Abdomen/Flank HPI - General Chief Complaint: General Medical Stated Complaint: abdominal pain, nausea and vomiting, constipation Date Seen by Provider: 06/09/17 Time Seen by Provider: 09:00 Source: POSITIVE: Patient Exam Limitations: POSITIVE: No limitations Nurse's Notes Reviewed & Considered: Yes - History of Present Illness Initial Comments: The patient is a 42-year-old female. She presents to the emergency room complaining of severe nausea and vomiting. She also complains of poorly localized abdominal pain and states that she feels constipated. On 03 May she underwent lumbar surgery and states that she has felt nauseated and has had some abdominal discomfort/pain since. She states that she is constipated. She' s been taking Percocet 7.5 mg for back and abdominal pain. Patient has had a hysterectomy and has had "surgery for kidney stones "in the past. No fevers or chills. No melena, hematochezia, hematemesis, dysuria or hematuria. Body Location Affected: REPORTS: Abdomen Timing: REPORTS: Constant Duration: >1 week Severity: Moderate Quality: REPORTS: "Pain" (Paraumbilical abdominal discomfort/pain) Abdominal Pain Onset Location: REPORTS: Periumbilical. DENIES: RUQ, LUQ, RLQ, LLQ, Epigastric, Suprapubic, Generalized abdomen, Flank, Other Abdominal Pain Radiation: REPORTS: No radiation Context: REPORTS: None Modifying Factors: improves with: Vomiting, Other (Constipation) Associated Symptoms: REPORTS: Nausea, Vomiting, Constipation Similar Symptoms Previously: Yes (as above) Recent Care Received: REPORTS: Recently Seen, Treated by MD, Hospitalized, Surgery (As above) Any Prior Injuries Related to Current Complaint?: No - Patient Home Medications Home Medications: Home Medications Magnesium Oxide [Magnesium] 1 tab PO BID tab 06/29/16 Metformin HCl [Metformin Hcl Er] 2 tab PO BID #120 tab 08/24/16 Losartan/Hydrochlorothiazide [Losartan-Hctz 100-12.5 mg Tab] 1 tab PO DAILY #30 tab 09/20/16 Naproxen 1 tab PO BID #60 tab 11/17/16 Ascorbic Acid [Vitamin C] 500 mg PO DAILY 12/15/16 Metoprolol Succinate 1 tab PO BID #60 tab 01/04/17 Ondansetron [Zofran Odt] 4 mg PO Q8H PRN #30 tab 01/31/17 Gabapentin 1 tab PO TID #90 tab 02/01/17 Pantoprazole Sodium [Protonix] 1 tab PO DAILY #30 tab 02/07/17 Prochlorperazine Maleate 1 tab PO TID PRN #30 tab 02/23/17 Promethazine HCl [Phenergan] 25 mg PO Q4H PRN #20 tab 03/01/17 levothyroxine 100 mcg tablet 1 tab PO DAILY #30 tab 03/28/17 cyclobenzaprine 10 mg tablet 10 mg PO TID #90 tab 04/06/17 cholecalciferol (vitamin D3) 5,000 unit tablet 1,000 unit PO DAILY tab oxycodone-acetaminophen 7.5 mg-325 mg tablet 2 tab PO Q4-6H PRN #100 tab ondansetron 4 mg disintegrating tablet 4 mg PO Q6-8H PRN #14 tab 06/03/17 - Patient Allergies Allergies/Adverse Reactions: Allergies 3 Allergy/AdvReac Type Severity Reaction Status Date / Time Sulfa (Sulfonamide Allergy Unknown NOT Verified 06/09/17 08:52 Antibiotics) APPLICABLE codeine [Codeine] Allergy HEADACHE Verified 06/09/17 08:52 Tetanus Vaccines and Toxoid Allergy SWELLING Verified 06/09/17 08:52 [Tetanus] venom-honey bee Allergy SWELLING Verified 06/09/17 08:52 [bee venom (honey bee)] hydrocodone AdvReac Intermediate ITCHING Verified 06/09/17 08:52 IV Contrast Allergy Intermediate Burning, Uncoded 06/09/17 08:52 Swelling, Hives Past Medical History - heen HEENT History: Denies History Cardiovascular History: Hypertension Additional Cardiovasular History: HX OF SVT Respiratory History: Other (please comment) Additional Respiratory History: chronic tobacco use, quit 7 months ago Gastrointestinal History: GERD, Peptic Ulcer Disease Genitourinary History: Kidney Stones Additional Genitourinary History: x9 WITH SONIC WAVES, LAZER AND SHUNTS TO REMOVE Endocrine History: Hypothyroidism, Other (please comment) Additional Endocrine History: PRE-DIABETIC Musculoskeletal History: Back Pain, Back Injury, Other (please comment) Prosthesis or Implant: No Additional Musculoskeletal History: lumbar spine surgery, MULTIPLE L5-S1 INJECTIONS Neurological History: Denies History Blood Disorders: Denies History Psychiatric History: Depression, PTSD History of Sexually Transmitted Diseases: No Female Reproductive History: Hysterectomy Cancer History: Denies History In Past Year Been Physically Harmed or Verbally Threatened: No History of MDRO: No History of Other Communicable Diseases: No Tobacco Use: Former Smoker Alcohol Use: None In the Past 12 Months, Have Used or Abuse Any Substance: None Previous Surgical History: Yes Type / Date of Surgery: LITHOTRIPSY/ x1; COMPLETE HYSTERECTOMY. BACK FX/ SCIATICA SURGERY. SHUNTS FOR KIDNEY STONES. BACK SURGERY 05/03/17 Anesthesia Reactions: No Malignant Hyperthermia: No Significant Family History: No pertinent family hx Past Medical History Reviewed: Reviewed - No Changes ROS - Limitations ROS Limitations: Clinical Condition, Uncooperative (Patient near hysterical. Refuses to move. Crying. Retching.) Constitution: REPORTS: Denies Symptoms Cardiovascular: REPORTS: Denies Cardiac Symptoms Respiratory: REPORTS: Denies Resp Symptoms Neurological: REPORTS: Denies Neuro Symptoms Gastrointestinal: REPORTS: Abdominal Pain, Nausea, Vomitting, Constipation Endocrine: REPORTS: Denies Symptoms Musculoskeletal: REPORTS: Denies MS Symptoms Genitourinary: REPORTS: Denies Symptoms Eyes: REPORTS: Denies Symptoms ENT: REPORTS: Denies Symptoms Skin: REPORTS: Denies Skin Symptoms Lympathic: REPORTS: Denies Lympathic Symptoms Immunologic: POSITIVE: Denies Symptoms Psychiatric: POSITIVE: Anxiety Abdominal/Flank Pain PE - General Appearance General Appearance: POSITIVE: Alert, Cooperative, No Evidence of Trauma, Moderate Distress (Initially patient refused to move from a position. She was noted have one episode of vomiting in the emergency room followed by prominent retching. Complaining of pain, constipation, and nausea. Patient medicated with Dilaudid and Zofran, and later Compazine and Benadryl, and afterwards she was relaxed enough to lie on her back to allow on abdominal examination and for CT scanning.). NEGATIVE: No Acute Distress - HEENT HEENT: POSITIVE: Head Inspection Nml, Eyes Inspection Nml, Ears Inspection Nml, Nose Inspection Nml, Oral/Dental Inspect. Nml, Pharynx Inspect. Nml, PERRL, EOMI - Neck Neck: POSITIVE: Normal Inspection, No Apparent Injury - Respiratory Respiratory: POSITIVE: No Respiratory Distress, Breath Sounds Normal, Chest Non- Tender - Cardiovascular Cardiovascular: POSITIVE: Regular Rate and Rhythm, Heart Sounds Normal, Equal Pulses, Strong Pulses Peripheral Pulses: Radial (R): 2+, Radial (L): 2+ - Chest Chest: POSITIVE: Non Tender - Abdomen Abdomen: Soft: (All Quadrants), Normal Bowel Sounds: (All Quadrants), No Splenomegaly: (All Quadrants), No Hepatomegaly: (All Quadrants), No Guarding: ( All Quadrants), No Rebound: (All Quadrants), No Palpable Pulse: (All Quadrants) , No Palpabale Mass: (All Quadrants), No Distention: (All Quadrants), No Rigidity: (All Quadrants), Tenderness Noted: (RUQ), (LUQ), (RLQ), (LLQ) Additional Abdominal Details: Abdominal examination shows bowel sounds to be active. She complains of some mild to moderate pain on palpation wherever her abdomen is touched. No organomegaly, masses or rebound. - Genital / Rectal Rectal: POSITIVE: Non Tender, Normal Rectal Tone, Heme Negative Stool, Fecal Impaction (Rectal fecal impaction) - Back Back: POSITIVE: Normal Inspection - Skin Skin: POSITIVE: Intact, Normal For Race, Warm, Dry, No Rash - Extremities Extremity: Non-Tender: (All Extremities), Normal ROM: (All Extremities), Normal Inspection: (All Extremities) - Neurological Neurological: POSITIVE: Affect Apporpriate, Oriented X3, glass vial filler Normal As Tested, Motor Normal, Sensation Normal - Psychological Psychiatric: POSITIVE: Anxious Images - Complete Complete: 1 - Complains of abdominal pain, poorly localized Abdomen Progress - Results Reviewed by me Xrays/CTs/US Reviewed by me: Yes Discussed with Radiologist: Yes Radiology Findings: CT scan abdomen and pelvis without IV contrast read by radiologist as normal except for prominent constipation. Lab Results Reviewed by Me: Yes (amylase and lipase and urinalysis normal) CBC and BMP: 06/09/17 09:29 06/09/17 09:29 - Patient's Progress Pain Medication Addressed: POSITIVE: Yes (Patient given Dilaudid, Zofran, Compazine and Benadryl as above) School/Work Release Addressed: POSITIVE: Not Applicable Re-examine Time: 12:00 Re-Examine Comment: The patient's complaint of abdominal discomfort last. Retching has abated. Status: POSITIVE: Improved, Re-Examined - Consult Consult (If Yes, Name of Consulting MD & Time Called): Yes (Dr. Arango [id number] ; Dr. Arango [id number]) Consulting MD will see pt:: POSITIVE: [facility] [place] Admit Counseled: POSITIVE: Patient, RE: Lab Results, RE: Radiology Results, RE: DX, RE : Need for F/U Patient Care Time - Estimated PCT Patient Care Time (In Minutes): 65 Vital Signs - Recent Vital Signs Vital Signs: Vital Signs (Last 8 hours) Temp Pulse Resp BP Pulse Ox 06/09/17 13:30 97.6 F 64 18 126/86 94 06/09/17 08:49 96.2 F L 83 82 H 174/82 95 - VS Reviewed Vital Signs Reviewed: Yes Discharge Clinical Impression: Abdominal pain, Vomiting, Constipation, Anxiety Discharge Disposition: Admit to Inpatient Condition: Stable Date Decision to Admit to Inpatient: 06/09/17 Time Decision to Admit to Inpatient: 12:00
[2017-06-09] MEDS: ONDANSETRON 4 MG/2 ML VIAL IVP PRN (18:16)
[2017-06-09] MEDS: GABAPENTIN 300 MG CAPSULE PO SCH ×2 (21:28→22:23)
[2017-06-09] MEDS: Senna Tab 8.6 MG TAB PO SCH (21:28)
[2017-06-09] MEDS: DOCUSATE 100 MG CAPSULE PO SCH (21:28)
[2017-06-10] MEDS: oxyCODONE/APAP 7.5/325 Tab 1 TAB TAB PO PRN ×3 (05:00→19:03)
[2017-06-10] MEDS: ONDANSETRON 4 MG/2 ML VIAL IVP PRN ×2 (05:00→17:47)
[2017-06-10] MEDS: LEVOTHYROXINE 100 MCG TABLET PO SCH (05:01)
[2017-06-10] MEDS: Sodium Chloride 0.9% 1,000 ML IV SCH ×2 (05:20→09:07)
[2017-06-10 05:44] LABS: BLOOD UREA NITROGEN 11 mg/dL (7-22); BUN/CREATININE RATIO 18.33 (6-20)
[2017-06-10] MEDS: PANTOPRAZOLE 40 MG TABLET PO SCH (07:41)
--- NOTE | 2017-06-10 07:58 | PDOC(PROG) ---
Date and Time of Service: 06/10/2017 7:58 AM Interval History: Subjective She said she did have some bowel movement yesterday was hard stool then she had another small one but she still feel the pressure and the need to have another bowel movement but she is not having a bowel movement yet. Passing some gas. Some mild nausea this morning. She is more cooperative today. Objective : Data - Labs CBC and BMP: 06/09/17 09:29 06/10/17 04:56 Objective : Exam - General General Appearance: No Acute Distress, Cooperative - Head Head Exam: Normal Inspection, Atraumatic - Eye Eye Exam: Normal Appearance - ENT ENT Exam: Normal Exam - Neck Neck Exam: Normal Inspection - Respiratory Respiratory Exam: Clear to Auscultation - Bilaterally - Cardiovascular Cardiovascular Exam: RRR - GI/Abdominal GI/Abdominal Exam: Non Distended, Soft, No Organomegaly Additional GI/Abdominal Exam Details: Minimal tenderness in the epigastrium and in the mid right abdomen. - Rectal Rectal Exam: Deferred - External Exam: Deferred - Extremities Extremities Exam: Normal Inspection - Back Back Exam: Normal Inspection - Neurological Neurological Exam: Alert, Oriented x 3, CN II-XII Intact, Speech Intact / Clear , Moves All Extremities Equally - Psychiatric Psychiatric Exam: Normal Affect - Integumentary Integumentary Exam: Normal Color Assessment and Plan - Patient Problems (1) Abdominal pain Current Visit: No Status: Acute Comment: Secondary to constipation. We'll give another Fleet enema if no results then the nurses will try manual disimpaction. Code(s): R10.9 - Unspecified abdominal pain (2) Chronic back pain Current Visit: Yes Status: Acute Comment: Same pain medications Code(s): M54.9 - Dorsalgia, unspecified; G89.29 - Other chronic pain (3) Hypothyroidism Current Visit: Yes Status: Acute Comment: Same med Code(s): E03.9 - Hypothyroidism, unspecified (4) Metabolic acidosis, increased anion gap Current Visit: Yes Status: Acute Comment: Improving Code(s): E87.2 - Acidosis
[2017-06-10] MEDS ORDERED: Fleet Enema 133ml RECTAL ONE (08:30)
[2017-06-10] MEDS ORDERED: PANTOPRAZOLE SODIUM PO SCH (09:00)
[2017-06-10] MEDS: POLYETHYLENE GLYCOL 3350 17 GM POWDER PO SCH (09:06)
[2017-06-10] MEDS: DOCUSATE 100 MG CAPSULE PO SCH ×2 (09:07→21:00)
[2017-06-10] MEDS ORDERED: MAGNESIUM CITRATE 296 ML SOLUTION PO ONE (10:22)
[2017-06-10] MEDS ORDERED: D5-1/2NS + 20mEq KCL 1,000 ML PRIMARY IV SCH (14:30)
[2017-06-10] MEDS ORDERED: AMITIZA 24 MCG PO SCH (21:00)
[2017-06-10] MEDS ORDERED: ALPRAZolam Tab 0.25 MG TABLET PO SCH (21:00)
[2017-06-10] MEDS: Senna Tab 8.6 MG TAB PO SCH (21:00)
[2017-06-10] MEDS ORDERED: ALPRAZolam Tab 0.25 MG TABLET PO PRN (22:40)
[2017-06-11] MEDS: LEVOTHYROXINE 100 MCG TABLET PO SCH ×2 (03:28→04:59)
[2017-06-11] MEDS: oxyCODONE/APAP 7.5/325 Tab 1 TAB TAB PO PRN ×2 (03:28→08:03)
[2017-06-11] MEDS ORDERED: Influenza 17-18 Vaccine (6mo+) Quad 60mcg/0.5ml PF IM ONE (03:29)
[2017-06-11] MEDS: PANTOPRAZOLE 40 MG TABLET PO SCH (08:02)
[2017-06-11] MEDS: POLYETHYLENE GLYCOL 3350 17 GM POWDER PO SCH (08:03)
[2017-06-11] MEDS: DOCUSATE 100 MG CAPSULE PO SCH (08:03)
[2017-06-11 09:09] VITALS: BP 119/70; RESP 18; TEMP 97.4; O2SAT 94
--- NOTE | 2017-06-11 10:42 | DCSUMMARY ---
Hospitalization Summary Admit Date: 06/09/2017 Discharge Date: 06/11/17 Hospital Course: Discharge diagnoses 1. Abdominal pain and vomiting resolved was secondary to impaction 2. Stool impaction resolved Secondary to pain medications 3. Hypertension 4. History of hypothyroidism 5. GERD 6. History of for lumbar fusion April 2017 Hospital course This is a 42 years old female medical history significant for history of hypothyroidism, hypertension, GERD who had back surgery back in April 2017 she had a lumbar fusion then who presented to the hospital with history of abdominal pain and vomiting. The last 3 days she's been constipated she is unable to take any of her pain medication and rest of her medications because of the vomiting. She came into the ER she was given fluid pain medication and antiemetics and she had a CT of the abdomen which showed constipation. She continued to vomit was given fluids and antiemetics and was admitted. By the time I saw her she was still feeling nauseated she initially did not let me examine her abdomen but after we gave her anti-medics I came back and examined her abdomen, her abdomen was soft there was minimal tenderness in epigastrium. We gave her fluid in addition to multiple laxatives including enemas. Eventually she did have a bowel movements she had a rectal exam and she was no longer impacted. She continued to feel nauseated and having cramps and so we kept here. Then on the day of discharge she was feeling better she actually started to have loose stools her abdomen exam was unremarkable we thought that she could be discharged home and follow-up with her primary. Did advise that in addition to the Senokot she takes MiraLAX once her diarrhea resolved. She did request some pain medication she said cover her over the weekend aa she ran out and she will follow-up on Tuesday. She said she was supposed to see her physician on the day she presented to the hospital. Discharge instruction Diet advance tolerated Medications Home Medications Medication Instructions Recorded Confirmed Type Magnesium Oxide [Magnesium] 1 tab PO BID tab 06/29/16 05/25/17 History Metformin HCl [Metformin HCl ER] 2 tab PO BID #120 tab 08/24/16 06/09/17 Rx Losartan/Hydrochlorothiazide 1 tab PO DAILY #30 tab 09/20/16 05/25/17 Rx [Losartan-Hctz 100-12.5 mg Tab] Naproxen 1 tab PO BID #60 tab 11/17/16 05/25/17 Rx Ascorbic Acid [Vitamin C] 500 mg PO DAILY 12/15/16 06/09/17 History Metoprolol Succinate 1 tab PO BID #60 tab 01/04/17 05/25/17 Rx Pantoprazole Sodium [Protonix] 1 tab PO DAILY #30 tab 02/07/17 05/25/17 Rx Prochlorperazine Maleate 1 tab PO TID PRN #30 tab 02/23/17 05/25/17 Clinic Promethazine HCl [Phenergan] 25 mg PO Q4H PRN #20 tab 03/01/17 05/25/17 Rx levothyroxine 100 mcg tablet 1 tab PO DAILY #30 tab 03/28/17 06/09/17 Rx cholecalciferol (vitamin D3) 5,000 1,000 unit PO DAILY tab 04/25/17 05/25/17 History unit tablet Ondansetron [Zofran Odt] 4 mg PO Q8H PRN #20 tab 06/11/17 Rx Polyeth Glycol 3350 Packet 17 gm PO DAILY powd.pack 06/11/17 Rx [Miralax Packet] oxyCODONE/APAP 7.5/325 Tab 2 tab PO Q4-6H PRN #20 tab 06/11/17 Rx [Percocet 7.5/325 Tab] Follow-up with PCP 1-2 weeks, follow-up with Jameson Mccarthy on Tuesday Condition at discharge was stable for discharge Exam - Vitals Vital Signs: Vital Signs Temperature 97.4 F Temperature Source Temporal Artery Scan Pulse Rate [Pulse Oximeter 73 Right] Respiratory Rate 18 Blood Pressure [Left Arm] 119/70 Pulse Ox 94 Oxygen Delivery Method Room Air Height 5 ft 6 in Weight 194 lb 8 oz - General General Appearance: No Acute Distress, Cooperative - Head Head Exam: Normal Inspection - Eye Eye Exam: POSITIVE: Normal Appearance - ENT ENT Exam: POSITIVE: Normal Exam - Neck Neck Exam: Normal Inspection - Respiratory Respiratory Exam: POSITIVE: Clear to Auscultation - Bilaterally - Cardiovascular Cardiovascular Exam: POSITIVE: RRR - GI/Abdominal GI/Abdominal Exam: POSITIVE: Normal Bowel Sounds, Non Tender, Non Distended, Soft, No Organomegaly - Rectal Rectal Exam: POSITIVE: Deferred - External Exam: POSITIVE: Deferred - Extremities Extremities Exam: POSITIVE: Normal Inspection - Back Back Exam: POSITIVE: Normal Inspection - Neurological Neurological Exam: POSITIVE: Alert, Oriented x 3, CN II-XII Intact, No Facial Droop, Speech Intact / Clear, Moves All Extremities Equally - Psychiatric Psychiatric Exam: POSITIVE: Normal Affect Patient Problems - Patient Problem List (1) Abdominal pain Current Visit: No Status: Acute Code(s): R10.9 - Unspecified abdominal pain Category: Medical (2) Chronic back pain Current Visit: Yes Status: Acute Code(s): M54.9 - Dorsalgia, unspecified; G89.29 - Other chronic pain Category: Medical (3) Hypothyroidism Current Visit: Yes Status: Acute Code(s): E03.9 - Hypothyroidism, unspecified Category: Medical (4) Metabolic acidosis, increased anion gap Current Visit: Yes Status: Acute Code(s): E87.2 - Acidosis Category: Medical
== END 2017-06-11 11:21 | disposition home or self-care (01) ==
LOC: MED/SURG 08:46 → ER 08:46
PROVIDERS: ADMIT Internal Medicine; ATTEND Internal Medicine